=== PATIENT | female | born 1935 | race Caucasian/White ===

== ENCOUNTER → 2016-06-02 | Outpatient (REF) | payer MEDICARE ==
[~2016-06-02] MED LIST: /BACIOPOI TOP; ASPI1TAB PO; ASPI81TA31 OR; ATEN25TA OR; BACTROBAN TOP; BETAMETHASONE TOP; CALCIUM/VITAMIN D PO; CALCTAB22 OR; CLIN150C OR; DO NOT TAKE; FISH5CAP PO; FLAG500T OR; LISI20TA5 OR; MAGN500T2 OR; METO50TA4 OR; NORV5TAB PO; OMEP20TA7 OR; PROBCAP4 PO; SIMV20TA2 OR; TRAM50TA2 OR; TYLE650T25 PO; VANC12CA OR; VICO5TAB OR; VITA-113 PO; VITA500T OR; ZOFR20TA PO; ZOFRAN PO; [UNRECOGNIZED DRUG - REMARK] OR; eye drops OS
== END ==
LOC: M LAB REF 16:22
PROVIDERS: ATTEND Internal Medicine
DX: R50.9 Fever, unspecified (principal); B34.9 Viral infection, unspecified

== ENCOUNTER → 2016-06-09 | Outpatient (REF) | payer MEDICARE | LOC: M LAB REF 16:29 | PROVIDERS: ATTEND Internal Medicine | DX: R19.7 Diarrhea, unspecified (principal); R10.9 Unspecified abdominal pain ==

== ENCOUNTER → 2016-06-10 | Outpatient (REF) | payer MEDICARE | LOC: M LAB REF 11:54 | PROVIDERS: ATTEND Internal Medicine | DX: R19.7 Diarrhea, unspecified (principal); R10.9 Unspecified abdominal pain ==

== ENCOUNTER 2016-07-20 21:38 | Inpatient (IN) | payer MEDICARE ==
[~2016-07-20] VITALS: Ht 165.1 cm; Wt 68.2 kg
[2016-07-20] MEDS ORDERED: BENZ200C44 PO (22:13)
[2016-07-20] MEDS ORDERED: ZETI10TA2 PO (22:13)
[2016-07-20] MEDS ORDERED: PAXI20TA3 PO (22:13)
[2016-07-21] MEDS ORDERED: ONDANSETRON 4MG/2ML VIAL (J2405) IV ONE
[2016-07-21] MEDS: MORPHINE 4 MG/ML 1ML SYRINGE IV PRN ×2 (00:02→00:26)
[2016-07-21 00:05] LABS: BASO % 0.2 % (0.0-1.0); EOS % 0.3 % (0.0-3.0); LARGE UNSTAINED CELL # 0.1 K/mm3 (0.0-0.4); LARGE UNSTAINED CELL % 0.6 % (0.0-4.0); LYMPH # 1.2 K/mm3 (1.5-4.5); LYMPH % 9.6 % (24.0-44.0); MEAN CORPUSCULAR HEMOGLOBIN 30.6 pg (27.0-33.0); MEAN CORPUSCULAR HGB CONC 33.6 g/dl (32.0-36.5); MEAN CORPUSCULAR VOLUME 91.3 fl (80.0-96.0); MONO # 0.5 K/mm3 (0.0-0.8); MONO % 4.4 % (0.0-5.0); NEUTROPHILS # 10.2 K/mm3 (1.8-7.7); PLATELET COUNT, AUTOMATED 335 k/mm3 (150-450); RED CELL DISTRIBUTION WIDTH 12.5 % (11.5-14.5)
[2016-07-21 01:16] LABS: ALBUMIN 3.6 GM/DL (3.2-5.2); ALBUMIN/GLOBULIN RATIO 1.24 (1.00-1.93); ALKALINE PHOSPHATASE 65 U/L (45-117); ALT/SGPT 19 U/L (12-78); ANION GAP 8 MEQ/L (8-16); AST/SGOT 16 U/L (15-37); BILIRUBIN,DIRECT < 0.1 MG/DL (0.0-0.2); BILIRUBIN,TOTAL 0.4 MG/DL (0.2-1.0); BLOOD UREA NITROGEN 22 MG/DL (7-18); CARBON DIOXIDE LEVEL 25 MEQ/L (21-32); CHLORIDE LEVEL 104 MEQ/L (98-107); CREATININE FOR GFR 0.96 MG/DL (0.55-1.02); GLOMERULAR FILTRATION RATE 59.7 (>39); GLUCOSE, FASTING 162 MG/DL (83-110); POTASSIUM SERUM 3.2 MEQ/L (3.5-5.1); SODIUM LEVEL 137 MEQ/L (136-145); TOTAL PROTEIN 6.5 GM/DL (6.4-8.2)
[2016-07-21] MEDS ORDERED: ISOVUE-370 76% 100ML VIAL (Q9967) As Ordered ONE (01:48)
--- NOTE | 2016-07-21 03:30 | REPUSA ---
CLINICAL HISTORY: Abdominal pain. TECHNIQUE: Multiple axial, sagittal and coronal CT images were obtained through the abdomen and pelvi s after administration of intravenous contrast material. COMMENTS: Diffuse thickening of the sigmoid, transverse and descending colon. The liver is mildly enlarged with decreased attenuation without mass or defect. There is no intra or extrahepatic biliary ductal dilatation. The spleen is normal. The gallbladder is within normal limits . The pancreas is of normal contour and attenuation characteristics. There is no evidence of adrenal mass. 2.5 cm left renal cyst. Sigmoid diverticulosis. Both kidneys demonstrate prompt and equal nephrograms. The kidneys are normal in size, shape and conf iguration. There is no evidence of renal or ureteral mass. No renal or ureteral calculi are identifie d. There is no hydroureter or hydronephrosis. No evidence for appendicitis. No evidence for small or large bowel obstruction. There is no evidence of abdominal ascites or lymphadenopathy. There is no evidence of intrinsic or extrinsic bladder mass. There is no pelvic ascites or lymphadeno denise. Images of the lung bases show no evidence of pleural or parenchymal mass. There are no pleural effusi ons. The bony structures are free of lytic or blastic lesions. Multilevel degenerative changes are seen in volving the thoracolumbar spine. Scattered calcifications are seen involving the aorta and major bran ches compatible with atherosclerosis. Changes of mesenteric panniculitis. IMPRESSION: Diffuse colitis. No perforation or abscess formation. No pneumatosis coli. Prior hysterectomy. Cystitis. No evidence of acute abdominal or pelvic pathology. Thank you for your kind referral of this patient.
[2016-07-21] MEDS ORDERED: IMIPENEM/CILASTATIN 500 MG in D5W MINI-BAG PLUS 100 ML IV ONE (04:00)
[2016-07-21] MEDS ORDERED: metroNIDAZOLE 500 MG in APPROPRIATE DILUENT 1 EA IV ONE (04:00)
[2016-07-21] MEDS ORDERED: MAGN400T5 PO (04:02)
[2016-07-21] MEDS ORDERED: CO Q100C10 PO (04:02)
[2016-07-21] MEDS ORDERED: CALCTAB75 PO (04:02)
[2016-07-21] MEDS ORDERED: LISI10TA4 PO (04:02)
[2016-07-21] MEDS ORDERED: BACITAB3 PO (04:02)
[2016-07-21] MEDS ORDERED: OMEP40CA2 PO (04:02)
[2016-07-21] MEDS ORDERED: MIRA33504 PO (04:02)
[2016-07-21] MEDS ORDERED: ONDANSETRON 4MG/2ML VIAL (J2405) IV PRN (05:45)
[2016-07-21] MEDS ORDERED: MORPHINE 2 MG/ML 1ML SYRINGE IV PRN (05:45)
[2016-07-21] MEDS ORDERED: KCL 40MEQ in NS 1000ML 1,000 ML IV SCH (05:45)
--- NOTE | 2016-07-21 06:16 | ECGEPIP ---
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
[2016-07-21 07:00] VITALS: BP 130/60
[2016-07-21 07:05] LABS: INR 1.06
--- NOTE | 2016-07-21 07:23 | HPEPDOC ---
General Date of Admission July 21, 2016 at 05:04 Primary Care Physician: LURDES GARNER DO Attending Physician: SAIMA PERLA Chief Complaint The patient is a 80-year-old female admitted with a reason for visit of Colitis. Source: Patient, RN notes reviewed, Old records Exam Limitations: No limitations Timing/Duration: This evening Associated Symptoms: Diaphoresis, Chills, Loss of appetite, Nausea, Vomiting, Weakness History of Present Illness Ms. Caldera is a 80-year-old female who presents to [facility] emergency Department with crampy abdominal pain and bloody diarrhea. 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 Patient reports that crampy abdominal pain started after supper last evening. Her crampy abdominal pain was so severe to the point that she had blurry vision and weakness which caused her to almost lose consciousness. Subsequent to the crampy abdominal pain patient developed diarrhea and vomited. Patient reports since admission to the emergency department she's had at least 10 episodes of diarrhea with the 3-4 most recent episodes being bright red blood per rectum. Reports 4-5 nonbloody episodes of emesis. Reports a similar episode approximately 6 months ago, but reports a more mild attack. During episodes patient has heart palpitations and develops nausea associated with the pain. Reports a "warmness "along her lower abdomen. Denies fever. Admits to burning with diarrheal episodes as well as burning with urination. Denies hematuria, urinary frequency or urgency. Reports associated back pain. Reports having the flu approximately 4 weeks ago for which she was taking Tamiflu. Admits to a weight loss associated with this flu approximately 12 pounds and reports no desire to eat. Admits to joint pain and muscle pain. Besides positive review of systems listed above all other review of systems are negative. Hospitalist service was consulted and patient was admitted for further medical management. Home Medications Scheduled (Co Q 10) 100 Mg Cap, 100 MG PO DAILY, (Reported) Amlodipine Besylate (Norvasc) 5 Mg Tab, 5 MG PO DAILY, (Reported) Aspirin (Aspirin 81) 81 Mg Tab, 81 MG PO DAILY, (Reported) Calcium/Vitamin D (Calcium 500 +D 500-400 mg-Unit) 1 Tab Tab, 1 TAB PO DAILY, ( Reported) Ezetimibe (Zetia) 10 Mg Tab, 10 MG PO DAILY, (Reported) Lactobacillus Acidophilus (Bacid) 1 Tab Tab, 1 TAB PO DAILY, (Reported) Lisinopril (Lisinopril) 10 Mg Tab, 10 MG PO DAILY, (Reported) Magnesium Oxide (Magnesium Oxide 400) 400 Mg Tab, 400 MG PO DAILY, (Reported) Omeprazole (Omeprazole) 40 Mg Cap, 40 MG PO DAILY, (Reported) Polyethylene Glycol (Miralax) 1 Pow Pow, 17 GM PO DAILY, (Reported) Allergies Coded Allergies: TAPE (Verified Allergy, Intermediate, DERMATITIS, 05/05/10) Latex (Verified Allergy, Unknown, 09/13/13) Penicillins (Unverified Allergy, Unknown, RASH, 06/12/12) Quinolones (Unverified Allergy, Unknown, RASH, 06/12/12) SEAFOOD (Unverified Allergy, Unknown, RASH, 05/08/04) Statins (Verified Allergy, Unknown, 09/13/13) Sulfa Drugs (Verified Allergy, Unknown, 06/12/12) Erythromycin (Verified Adverse Reaction, Mild, DIARHEA, 06/12/12) Past Medical History Medical History 1. Hypertension 2. Gastroesophageal reflux disease 3. History of Clostridium difficile infection 4. Diverticulosis 5. Anxiety/depression 6. Dyslipidemia 7. Arthritis 8. Right bundle branch block 9. History of urinary tract infection 10. Right posterior neck mass 11. Enterocele Surgical History 1. Upper endoscopy 2. Colonoscopy 3. Cardiac catheterization 4. Fecal microbiota transplant 5. Biopsy of right posterior neck mass 6. Vaginal hysterectomy 7. Mesh suspension 8. Appendectomy 9. Left knee surgery 10. 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 Dyspnea, Lt Headedness Gastrointestinal: Reports: Nausea (with pain), Vomiting (nonbloody), Abdominal Pain (lower abdomen), Diarrhea (bright red blood per rectum), Hematochezia, Denies: Constipation Genitourinary: Reports: Dysuria, Denies: Frequency, Incontinence, Hematuria Hematologic: Reports: Bruising, Bleeding Excessively Musculoskeletal: Reports: Back Pain, Joint Pain, Muscle Pain Neurological: Reports: Weakness Physical Examination General Exam: Positive: Alert, Cooperative, No Acute Distress Eye Exam: Positive: PERRLA, Conjunctiva & lids normal, EOMI, Negative: Sclera icteric, Ptosis ENT Exam: Positive: Atraumatic, Pharynx Normal, Tongue Midline, Nares Patent, Negative: Mucous membr. moist/pink, Pharyngeal Edema Neck Exam: Positive: Supple, Other (without carotid bruit), Negative: JVD, thyromegaly, +2 carotid pulse wo bruit, Lymphadenopathy Chest Exam: Positive: Clear to auscultation, Normal air movement Heart Exam: Positive: Rate Normal, Regular Rhythm, Normal S1, Normal S2, Negative: Gallops, Murmurs, Rubs Telemetry: Positive: No significant arrhythmia Abdomen Exam: Positive: Normal bowel sounds, Soft, Tenderness (in the lower abdominal quadrants), Negative: Hepatospenomegaly, Mass, Hernia Extremity Exam: Positive: Normal pulses, Negative: Clubbing, Cyanosis, Edema, Tenderness Skin Exam: Positive: Nl turgor and temperature, Negative: Rash, Lesion Neuro Exam: Positive: Normal Speech, Strength at 5/5 X4 ext, Cranial Nerves 3- [address] NL Other physical findings CT of the abdomen and pelvis with IV contrast only IMPRESSION: Diffuse colitis. No perforation or abscess formation. No pneumatosis coli. Prior hysterectomy. Cystitis. No evidence of acute abdominal or pelvic pathology. Vital Signs Vital Signs Date Time Temp Pulse Resp B/P (MAP) Pulse Ox O2 Delivery O2 Flow Rate FiO2 07/21/16 05:32 97.9 74 20 107/53 (71) 97 Room Air Height (in): 65 Weight (kg): 66.67 BMI (kg): 24.5 Laboratory Data Labs 24H Laboratory Tests 2 07/20/16 23:49: White Blood Count 12.0H, Red Blood Count 4.39, Hemoglobin 13.4, Hematocrit 40.1 , Mean Corpuscular Volume 91.3, Mean Corpuscular Hemoglobin 30.6, Mean Corpuscular Hemoglobin Concent 33.6, Red Cell Distribution Width 12.5, Platelet Count 335, Neutrophils (%) (Auto) 85.0H, Lymphocytes (%) (Auto) 9.6L, Monocytes (%) (Auto) 4.4, Eosinophils (%) (Auto) 0.3, Basophils (%) (Auto) 0.2, Neutrophils # (Auto) 10.2H, Lymphocytes # (Auto) 1.2L, Monocytes # (Auto) 0.5, Eosinophils # (Auto) 0.0, Basophils # (Auto) 0.0, Large Unclassified Cells % 0.6 , Large Unclassified Cells # 0.1 07/21/16 00:35: Anion Gap 8, Glomerular Filtration Rate 59.7, Calcium Level 9.0, Aspartate Amino Transf (AST/SGOT) 16, Alanine Aminotransferase (ALT/SGPT) 19, Alkaline Phosphatase 65, Total Bilirubin 0.4, Direct Bilirubin < 0.1, Total Protein 6.5, Albumin 3.6, Albumin/Globulin Ratio 1.24, Lipase 200 CBC/BMP Laboratory Tests 07/20/16 23:49 Red Blood Count 4.39, Mean Corpuscular Volume 91.3, Mean Corpuscular Hemoglobin 30.6, Mean Corpuscular Hemoglobin Concent 33.6, Red Cell Distribution Width 12.5 , Neutrophils (%) (Auto) 85.0 H, Lymphocytes (%) (Auto) 9.6 L, Monocytes (%) ( Auto) 4.4, Eosinophils (%) (Auto) 0.3, Basophils (%) (Auto) 0.2, Neutrophils # ( Auto) 10.2 H, Lymphocytes # (Auto) 1.2 L, Monocytes # (Auto) 0.5, Eosinophils # (Auto) 0.0, Basophils # (Auto) 0.0 07/21/16 00:35 Microbiology Microbiology 07/21/16 Blood Culture, Received Pending 07/21/16 Blood Culture, Received Pending 07/20/16 Gastrointestinal Tract Panel (PCR) - Final, Complete Assessment/Plan Ms. 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 Plan / VTE VTE Prophylaxis Ordered?: Yes (TEDs and sequentials with knee-high compression) Plan Plan Abdominal pain Infectious versus inflammatory. GI panel negative. Afebrile. Empiric antibiotics with Flagyl and ertapenem secondary to patient's extensive allergies. Nothing by mouth. Intravenous Protonix twice a day. Zofran IV. Coagulation studies secondary to gastrointestinal bleeding. No need for stool for occult blood as patient has ioana blood per rectum. Could consider obtaining a colonoscopy. Could consider initiating steroids for inflammatory causes after colonoscopy. Intravenous fluids at 100 mLs per hour. Blood cultures pending. No need for nasogastric tube at this time as patient has no abdominal distention. Morphine IV for pain. Hypokalemia Likely secondary to diarrhea. 40 mEq potassium in normal saline at 100 mLs per hour. Hypertension Continue with current home medication regimen. Dyslipidemia Continue with current home medication regimen. Disposition Admit: Medical surgical unit Anticipated hospitalization: 2 nights Attending: Dr. Burris IVF: Initiate (100 mLs per hour) Diet: Make NPO Activity: Continue Current Medications: Change to IV Diagnostics: Check Labs, Repeat Labs in AM, Obtain Cultures Anticipated Discharge: Home BROWN FITZPATRICK July 21, 2016 06:19
[2016-07-21 08:06] LABS: MEAN CORPUSCULAR HEMOGLOBIN 31.2 pg (27.0-33.0); MEAN CORPUSCULAR HGB CONC 34.5 g/dl (32.0-36.5); MEAN CORPUSCULAR VOLUME 90.4 fl (80.0-96.0); RED CELL DISTRIBUTION WIDTH 12.6 % (11.5-14.5); WHITE BLOOD COUNT 8.5 K/mm3 (4.0-10.0)
[2016-07-21 08:31] LABS: ANION GAP 9 MEQ/L (8-16); BLOOD UREA NITROGEN 19 MG/DL (7-18); CALCIUM LEVEL 8.2 MG/DL (8.8-10.2); CARBON DIOXIDE LEVEL 26 MEQ/L (21-32); CHLORIDE LEVEL 104 MEQ/L (98-107); CREATININE FOR GFR 0.83 MG/DL (0.55-1.02); GLOMERULAR FILTRATION RATE > 60.0 (>39); GLUCOSE, FASTING 133 MG/DL (83-110); SODIUM LEVEL 139 MEQ/L (136-145)
[2016-07-21] MEDS ORDERED: ASPIRIN 81 MG ENTERIC TAB PO SCH (09:00)
[2016-07-21] MEDS ORDERED: ERTAPENEM SODIUM 1 GM in NS MINI-BAG PLUS 50 ML IV SCH (09:00)
[2016-07-21] MEDS: PANTOPRAZOLE 40MG INJ (PROTONIX) (C9113) IV SCH ×2 (09:59→20:07)
[2016-07-21] MEDS ORDERED: metroNIDAZOLE 500 MG in APPROPRIATE DILUENT 1 EA IV SCH (10:00)
[2016-07-21] MEDS: EZETIMIBE 10 MG TAB (ZETIA) PO SCH (10:04)
[2016-07-21] MEDS: MAGNESIUM OXIDE 400 MG TAB (MAG-OX) PO SCH (10:04)
[2016-07-21] MEDS: LACTOBACILLUS ACIDOPHILUS CAP (BACID) PO SCH (10:04)
[2016-07-21] MEDS: LISINOPRIL 10 MG TAB PO SCH (10:05)
[2016-07-21] MEDS: amLODIPine 5 MG TAB PO SCH (10:06)
[2016-07-21 14:00] VITALS: BP 125/56
[2016-07-21 22:00] VITALS: BP 121/59
[2016-07-22 00:30] VITALS: BP_SYST 120; BP_SYST 122; BP_SYST 132; BP_DIAS 50; BP_DIAS 55
[2016-07-22] MEDS ORDERED: NS 250 ML IV ONE (01:00)
[2016-07-22 06:00] VITALS: BP 115/50
[2016-07-22 06:46] LABS: MEAN CORPUSCULAR HEMOGLOBIN 31.2 pg (27.0-33.0); MEAN CORPUSCULAR VOLUME 91.8 fl (80.0-96.0); RED CELL DISTRIBUTION WIDTH 12.7 % (11.5-14.5)
[2016-07-22 07:09] LABS: ANION GAP 3 MEQ/L (8-16); BLOOD UREA NITROGEN 11 MG/DL (7-18); CALCIUM LEVEL 8.4 MG/DL (8.8-10.2); CARBON DIOXIDE LEVEL 31 MEQ/L (21-32); CHLORIDE LEVEL 106 MEQ/L (98-107); CREATININE FOR GFR 0.72 MG/DL (0.55-1.02); GLOMERULAR FILTRATION RATE > 60.0 (>39); GLUCOSE, FASTING 95 MG/DL (83-110); POTASSIUM SERUM 3.7 MEQ/L (3.5-5.1); SODIUM LEVEL 140 MEQ/L (136-145)
[2016-07-22] MEDS: LACTOBACILLUS ACIDOPHILUS CAP (BACID) PO SCH (10:03)
[2016-07-22] MEDS: LISINOPRIL 10 MG TAB PO SCH (10:04)
[2016-07-22] MEDS: EZETIMIBE 10 MG TAB (ZETIA) PO SCH (10:04)
[2016-07-22] MEDS: MAGNESIUM OXIDE 400 MG TAB (MAG-OX) PO SCH (10:04)
[2016-07-22] MEDS: amLODIPine 5 MG TAB PO SCH (10:04)
[2016-07-22] MEDS: PANTOPRAZOLE 40MG INJ (PROTONIX) (C9113) IV SCH ×2 (10:05→21:29)
--- NOTE | 2016-07-22 13:56 | IPN ---
DATE OF EXAMINATION: 07/22/2016 SUBJECTIVE: The patient tells me that she has had persistent abdominal pain with bloody stools. She denies chest pain, shortness of breath, fevers, chills, nausea, or vomiting. OBJECTIVE: VITAL SIGNS: Temperature 98.6, pulse 72, respiratory rate 18, blood pressure (BP) 115/50, oxygen (O2) saturation 97% on room air. General: She is a pleasant elderly female, sitting up in a recliner. She does not appear to be in acute distress. HEENT: Cranial nerves II-XII are grossly intact. She is wearing reading glasses. She has moist mucous membranes. No elevation in central venous pressure (CVP). CARDIOVASCULAR EXAMINATION: S1, S2. Regular. RESPIRATORY EXAMINATION: Is clear. ABDOMINAL EXAMINATION: Bowel sounds are present. There is tenderness in the left lower quadrant. EXTREMITIES: No clubbing, cyanosis, or edema. LABORATORY STUDIES: WBC 4.0, hemoglobin 11.1 stable, hematocrit 32.5, platelet count 257. Chemistry panel: Sodium 140, potassium 3.7, chloride 106, bicarbonate 31, BUN 11, creatinine 0.7. MICROBIOLOGY: Is negative. A GI PCR panel is negative. IMAGING: No new imaging. ASSESSMENT AND PLAN: This is a 80-year-old female with a history of ischemic colitis presenting now with what is likely a recurrent bout of ischemic colitis. PROBLEMS: 1. Ischemic colitis. The patient has a CT scan with findings which are suggestive of a watershed infarct and fairly diffuse colitis. It does not appear to be infectious and, as such, antibiotics were discontinued early yesterday morning. The patient is on a clear-liquid diet with intravenous (IV) Zofran as needed. Her hemoglobin and hematocrit has remained fairly stable. I have contacted Dr. Lopez of gastroenterology, who has previously seen the patient and scoped her. He agrees that it is likely ischemic colitis. 2. Hypokalemia, likely related to diarrhea and colitis, has resolved. 3. Hypertension, adequately controlled at this time. Continue with norvasc and lisinopril. 4. Dyslipidemia. Continue with Zetia. 5. Hypomagnesemia. Continue with repletion. 6. Deep venous thrombosis (DVT) prophylaxis. Sequentials and thromboembolic deterrents (TEDs). No pharmacological agents in the setting of bleeding. DISPOSITION: Will continue to follow the patient closely.
[2016-07-22 14:00] VITALS: BP 132/60
[2016-07-22] MEDS ORDERED: ACETAMINOPHEN TAB 650MG DOSE (2X325MG) PO ONE (18:15)
[2016-07-22] MEDS ORDERED: GOLYTELY SOLN 4000 ML BTL PO ONE (19:30)
[2016-07-22 22:00] VITALS: BP 125/60
[2016-07-23] MEDS ORDERED: GOLYTELY SOLN 4000 ML BTL PO ONE (05:00)
[2016-07-23 06:00] VITALS: BP 119/59
[2016-07-23 06:55] LABS: MEAN CORPUSCULAR HEMOGLOBIN 30.7 pg (27.0-33.0); MEAN CORPUSCULAR VOLUME 90.2 fl (80.0-96.0); RED CELL DISTRIBUTION WIDTH 12.5 % (11.5-14.5)
[2016-07-23 07:08] LABS: ANION GAP 6 MEQ/L (8-16); BLOOD UREA NITROGEN 9 MG/DL (7-18); CALCIUM LEVEL 8.7 MG/DL (8.8-10.2); CARBON DIOXIDE LEVEL 32 MEQ/L (21-32); CHLORIDE LEVEL 104 MEQ/L (98-107); CREATININE FOR GFR 0.68 MG/DL (0.55-1.02); GLOMERULAR FILTRATION RATE > 60.0 (>39); GLUCOSE, FASTING 96 MG/DL (83-110); POTASSIUM SERUM 3.4 MEQ/L (3.5-5.1); SODIUM LEVEL 142 MEQ/L (136-145)
[2016-07-23] MEDS: PANTOPRAZOLE 40MG INJ (PROTONIX) (C9113) IV SCH ×2 (08:48→21:39)
[2016-07-23] MEDS ORDERED: PREVNAR 13 VACCINE SYRINGE (CPT CODE:90670) IM ONE (09:00)
[2016-07-23] MEDS ORDERED: LIDOCAINE 2% INJ 100 MG/5 ML SDV (FOR ANES.) As Ordered ONE (13:28)
[2016-07-23] MEDS ORDERED: PROPOFOL 200 MG/20 ML VIAL As Ordered ONE (13:28)
[2016-07-23 14:00] VITALS: BP 140/65
--- NOTE | 2016-07-23 14:03 | ROOR ---
Patient Name: Alysa Caledra Procedure Date: 07/23/2016 1:25 PM Date of : 1935 Age: 80 Room: [facility] Gender: Female Note Status: Finalized Procedure: Colonoscopy Indications: Generalized abdominal pain, Hematochezia, acute pain with bloody diarrhea 2 days ago, CT suggestive of colitis (TV to sigmoid)-r/o ischemic colitis. Providers: Lalito LOPEZ MD Referring MD: Evie Zepeda DO, 2. Inpatient 2. Inpatient Requesting Provider: Medicines: Monitored Anesthesia Care Complications: No immediate complications. Procedure: Pre-Anesthesia Assessment: - The heart rate, respiratory rate, oxygen saturations, blood pressure, adequacy of pulmonary ventilation, and response to care were monitored throughout the procedure. The Colonoscope was introduced through the anus and advanced to 8 cm into the ileum. The colonoscopy was performed without difficulty. The patient tolerated the procedure well. The quality of the bowel preparation was good. Findings: The perianal and digital rectal examinations were normal. The mucosa vascular pattern in the sigmoid colon and in the descending colon was decreased. This was biopsied with a cold forceps for histology. The exam was otherwise normal throughout the entire colon. The terminal ileum appeared normal. Multiple medium-mouthed diverticula were found in the sigmoid colon. The colon (entire examined portion) was moderately redundant. Impression: - Decreased mucosa vascular pattern and mild erythema in the sigmoid colon and in the descending colon. Biopsied. - The rest of the colon and examined portion of the ileum was normal. - Mild diverticulosis in the sigmoid colon. - Redundant colon. - (no obviously ischemic areas or colitis seen. The mild sigmoid erythema is visually nonspecific and could be related to the colon preparation or fecal impaction/constipation)--Await biopsies to r/o a colitic process) Recommendation: - Await pathology results. - Advance diet as tolerated. - Return to my office at the next available appointment. - Return to my office in 1 month. - or sooner prn. Lalito Lopez MD Lalito LOPEZ MD 07/23/2016 2:03:43 PM This report has been signed electronically. Number of Addenda: 0 Note Initiated On: 07/23/2016 1:25 PM Estimated Blood Loss: Estimated blood loss: none.
--- NOTE | 2016-07-23 14:53 | IPN ---
DATE: 07/23/2016 SUBJECTIVE: The patient tells me that she is feeling well at the present time. She denies any abdominal pain. She denies any further vomiting, chest pain, or shortness of breath. OBJECTIVE: VITAL SIGNS: Temperature 97, pulse 56, respiratory rate 18, blood pressure 109/55, oxygen saturation 98% on room air. General: She is a pleasant female, laying flat in bed. She does not appear to be in any acute distress. HEENT: She has moist mucous membranes. No elevation in central venous pressure (CVP). CARDIOVASCULAR EXAMINATION: S1, S2, regular. RESPIRATORY EXAMINATION: Clear. ABDOMINAL EXAMINATION: Diffuse tenderness to palpation but soft and bowel sounds are present. EXTREMITIES: No clubbing, cyanosis, or edema. LABORATORY STUDIES: WBC 4.0, hemoglobin 11.7, platelet count 259. Chemistry panel: Sodium 142, potassium 3.4, chloride 104, bicarbonate 32, BUN 9, creatinine 0.6. No new microbiology. Colonoscopy report: The patient's colonoscopy revealed decreased mucosa, vascular pattern and mild erythema in the sigmoid colon and ascending colon which were biopsied. Mild diverticulosis in the sigmoid colon, redundant colon. No obviously ischemic areas or colitis seen. ASSESSMENT AND PLAN: This is a 80-year-old female with possible ischemic colitis. PROBLEMS: 1. Possible ischemic colitis. Dr. Lopez's help is greatly appreciated. Colonoscopy does not reveal any obvious ischemia. He suggested advancing diet as tolerated which we will. He has also ordered a CT angiogram to evaluate the blood flow which I agree with. The patient appears to be doing quite well. We will continue with pain control. 2. Hypokalemia, related to diarrhea and colitis, resolved. 3. Hypertension. Controlled at this time. Continue with norvasc and lisinopril. 4. Dyslipidemia. Continue with Zetia. 5. Hypomagnesemia. Continue with repletion as needed. 6. Deep venous thrombosis (DVT) prophylaxis. Sequentials and thromboembolic deterrents (TEDs). DISPOSITION: We will continue to follow the patient closely.
[2016-07-23] MEDS ORDERED: ISOVUE-370 76% 100ML VIAL (Q9967) As Ordered ONE (15:56)
--- NOTE | 2016-07-23 17:30 | REP ---
CT ANGIO of the abdomen and visceral arteries with IV contrast: History: Mesenteric vessels. Left lower quadrant pain. Comparison CT study is from July 21, 2016. CT contrast dose: 100 mL of Isovue [address] technique: Helical scanning is acquired. 3 mm axial images are reformatted. Coronal and sagittal multiplanar re-formation images are generated and reviewed. Coronal MIP images are generated and reviewed. Oblique curved array multiplanar re-formation images are generated and reviewed as well. 3-D color surface rendered images are generated. CT findings: Digital straightening press operator radiograph demonstrates an ileus pattern in the bowel gas with gaseous distension of the colon. No haustral fold or mural thickening is seen. The enterocolitis pattern with mural thickening seen on CT study from July 21, 2016 has largely resolved. The suprarenal and infrarenal abdominal aorta are widely patent. Celiac axis is patent. It shows a 50% stenosis at a 90 degree genu beyond which it is mildly dilated. No ioana aneurysm is seen. Splenic artery, proper hepatic artery and gastroduodenal branches are unremarkable. The superior mesenteric artery origin is widely patent. The inferior mesenteric artery is widely patent. There is some calcific plaquing at the origin of the right renal artery. 50% narrowing of the origin of the right renal artery suspected. Left renal artery origin is unremarkable. The common iliac arteries are widely patent. There is vascular calcification in the aorta and iliac artery branches as well as in the right renal artery. 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 No ioana aneurysm. SMA and VITALIY widely patent. 50% narrowing at the origin of the right renal artery. Signed by Ori Mays MD 07/24/2016 09:10 A
[2016-07-23] MEDS: LACTOBACILLUS ACIDOPHILUS CAP (BACID) PO SCH (18:32)
[2016-07-23] MEDS: EZETIMIBE 10 MG TAB (ZETIA) PO SCH (18:33)
[2016-07-23] MEDS: LISINOPRIL 10 MG TAB PO SCH (18:33)
[2016-07-23] MEDS: amLODIPine 5 MG TAB PO SCH (18:33)
[2016-07-23] MEDS: MAGNESIUM OXIDE 400 MG TAB (MAG-OX) PO SCH (18:33)
[2016-07-23 22:00] VITALS: BP 135/65
[2016-07-24 06:00] VITALS: BP 128/66
[2016-07-24 06:48] LABS: MEAN CORPUSCULAR HEMOGLOBIN 30.9 pg (27.0-33.0); MEAN CORPUSCULAR HGB CONC 33.8 g/dl (32.0-36.5); MEAN CORPUSCULAR VOLUME 91.5 fl (80.0-96.0); RED CELL DISTRIBUTION WIDTH 12.3 % (11.5-14.5); WHITE BLOOD COUNT 3.5 K/mm3 (4.0-10.0)
[2016-07-24 07:02] LABS: ANION GAP 4 MEQ/L (8-16); BLOOD UREA NITROGEN 6 MG/DL (7-18); CALCIUM LEVEL 8.6 MG/DL (8.8-10.2); CARBON DIOXIDE LEVEL 32 MEQ/L (21-32); CHLORIDE LEVEL 106 MEQ/L (98-107); GLOMERULAR FILTRATION RATE > 60.0 (>39); GLUCOSE, FASTING 98 MG/DL (83-110); POTASSIUM SERUM 3.6 MEQ/L (3.5-5.1); SODIUM LEVEL 142 MEQ/L (136-145)
[2016-07-24] MEDS: MAGNESIUM OXIDE 400 MG TAB (MAG-OX) PO SCH (08:45)
[2016-07-24] MEDS: PANTOPRAZOLE 40MG INJ (PROTONIX) (C9113) IV SCH ×2 (08:45→20:21)
[2016-07-24] MEDS: EZETIMIBE 10 MG TAB (ZETIA) PO SCH (08:45)
[2016-07-24] MEDS: LACTOBACILLUS ACIDOPHILUS CAP (BACID) PO SCH (08:45)
[2016-07-24] MEDS: LISINOPRIL 10 MG TAB PO SCH (08:46)
[2016-07-24] MEDS: amLODIPine 5 MG TAB PO SCH (08:46)
--- NOTE | 2016-07-24 13:43 | IPN ---
DATE: 07/24/2016 SUBJECTIVE: Today the patient tells me that she is still having abdominal pain. She had diarrhea after eating, but no blood in the stool. She denies chest pain, shortness of breath, fevers, chills, nausea or vomiting. OBJECTIVE: VITAL SIGNS: Temperature 97.6, pulse 70, respiratory rate 10, blood pressure 128/66, oxygen saturation 98% on room air. General: She is an elderly pleasant female, laying flat in bed on her back. She is in no distress. HEENT: She is mildly pale. She has moist mucous membranes. No elevation in central venous pressure (CVP). CARDIOVASCULAR EXAMINATION: S1 and S2 regular. RESPIRATORY EXAMINATION: Clear. ABDOMINAL EXAMINATION: Bowel sounds are present. The abdomen is soft. There is diffuse tenderness to palpation. LABORATORY STUDIES: WBC 3.5, hemoglobin 11.5, platelet count 264. Chemistry panel: Sodium 142, potassium 3.6, chloride 106, bicarbonate 32, BUN 6, creatinine 0.6. Microbiology: Urine culture is negative. Blood cultures are negative. GI PCR panel is negative. IMAGING: The patient did have a CT angiography of the abdomen, which revealed 50% narrowing at a right angle turn in the course of the proximal celiac axis with increase in caliber beyond this point and no ioana aneurysm. SMA and VITALIY widely patent. 50% narrowing at the original of the right renal artery. ASSESSMENT AND PLAN: This is a 80-year-old female with possible ischemic colitis. PROBLEMS: 1. Possible ischemic colitis. Dr. Lopez's help is greatly appreciated. Colonoscopy did not reveal any obvious ischemia or colitis. Her diet has been advanced. She appears to be tolerating it fairly well other than some mild diarrhea. CT angiogram reveals an area of 50% stenosis. I have reached out to Dr. Kuo of interventional radiology to see if she is candidate for any interventions at the request of Dr. Lopez who has also reviewed these imaging studies. We will see if there are any interventions we have to offer this patient. 2. Hypokalemia, related to diarrhea and colitis. Essentially resolved. 3. Hypertension. Continue with Norvasc and lisinopril. 4. Dyslipidemia. Continue with Zetia. 5. Deep venous thrombosis (DVT) prophylaxis. Sequentials and thromboembolic deterrent stockings (TEDS). DISPOSITION: Will continue to follow this patient closely.
[2016-07-24 14:00] VITALS: BP 120/73
[2016-07-24 22:00] VITALS: BP 131/63
[2016-07-25 06:00] VITALS: BP 117/55
[2016-07-25 06:28] LABS: MEAN CORPUSCULAR HEMOGLOBIN 31.4 pg (27.0-33.0); MEAN CORPUSCULAR HGB CONC 34.9 g/dl (32.0-36.5); MEAN CORPUSCULAR VOLUME 89.9 fl (80.0-96.0); RED CELL DISTRIBUTION WIDTH 12.5 % (11.5-14.5)
[2016-07-25 06:53] LABS: ANION GAP 7 MEQ/L (8-16); BLOOD UREA NITROGEN 7 MG/DL (7-18); CALCIUM LEVEL 8.2 MG/DL (8.8-10.2); CARBON DIOXIDE LEVEL 28 MEQ/L (21-32); CHLORIDE LEVEL 107 MEQ/L (98-107); CREATININE FOR GFR 0.73 MG/DL (0.55-1.02); GLOMERULAR FILTRATION RATE > 60.0 (>39); GLUCOSE, FASTING 109 MG/DL (83-110); POTASSIUM SERUM 3.5 MEQ/L (3.5-5.1); SODIUM LEVEL 142 MEQ/L (136-145)
[2016-07-25 09:20] VITALS: BP 117/55
[2016-07-25] MEDS: LISINOPRIL 10 MG TAB PO SCH (09:20)
[2016-07-25] MEDS: EZETIMIBE 10 MG TAB (ZETIA) PO SCH (09:20)
[2016-07-25] MEDS: PANTOPRAZOLE 40MG INJ (PROTONIX) (C9113) IV SCH (09:20)
[2016-07-25] MEDS: LACTOBACILLUS ACIDOPHILUS CAP (BACID) PO SCH (09:20)
[2016-07-25] MEDS: MAGNESIUM OXIDE 400 MG TAB (MAG-OX) PO SCH (09:21)
[2016-07-25] MEDS: amLODIPine 5 MG TAB PO SCH (09:21)
--- NOTE | 2016-07-26 01:05 | DSES ---
DATE OF ADMISSION: 07/21/2016 DATE OF DISCHARGE: 07/25/2016 DISCHARGE DIAGNOSIS: Ischemic colitis. SECONDARY DIAGNOSES: 1. Hypokalemia. 2. Hypertension. 3. Dyslipidemia. CONSULTS: Dr. Lopez. PROCEDURES: Colonoscopy. HOSPITAL COURSE: The patient is a 80-year-old female with a history of ischemic colitis, who presented to the hospital with abdominal pain, shortly thereafter followed by hematochezia. She did have an episode like this in the past in 2013. Was scoped by Dr. Lopez at that time and there was concern for ischemic colitis. Our suspicion is that this was the same event at this time. She was initially started on antibiotics in the emergency room; however, gastrointestinal (GI) PCR panel was negative and antibiotics were discontinued. Blood culture remained negative. Urine culture was negative. A CT of the abdomen and pelvis did reveal colitis. She did have a colonoscopy with Dr. Lopez, which did not reveal any evidence of ischemic colitis. She did have a CT angiography of the abdomen, which did not show any significant or intervenable stenosis. The patient's symptoms did gradually lin. At this time, she is tolerating a regular diet with minimal abdominal pain and no hematochezia. Her hemoglobin and hematocrit remained stable throughout her stay. Pathology from her colonoscopy is currently pending. SUBJECTIVE: Today the patient reports she feels well, almost back to normal and would like to go home. OBJECTIVE: VITAL SIGNS: Temperature 98.1, pulse 54, respiratory rate 18, blood pressure 117/55, oxygen saturation 97% on room air. GENERAL: She is a pleasant, elderly female, sitting up using her laptop. She does not appear to be in any acute distress. HEENT: She is wearing reading glasses. She has moist mucous membranes. CARDIOVASCULAR EXAMINATION: S1, S2 regular. RESPIRATORY EXAMINATION: Clear. ABDOMINAL EXAMINATION: Bowel sounds are present. The abdomen is soft. It is nontender today on examination. EXTREMITIES: No clubbing, cyanosis or edema. LABORATORY STUDIES: WBC 3.0, hemoglobin 11.9, hematocrit 34, platelet count 258. Chemistry panel: Sodium 142, potassium 3.5, chloride 107, bicarbonate 28, BUN 7, creatinine 0.7. IMAGING: Was outlined above. ASSESSMENT AND PLAN: This is a 80-year-old female with ischemic colitis. 1. Ischemic colitis. Dr. Lopez's and Dr. Kuo's help have been greatly appreciated. Colonoscopy did not reveal any obvious signs of colitis. She is tolerating a diet now. CT angiography did not reveal any intervenable stenosis. Dr. Lopez has recommended the patient remain on laxative daily, as well as calcium channel antoentte and he will followup pathology with her in his office. Gastrointestinal (GI) upset appears to have resolved. She has gone several days since her previous bout. She is to followup with primary care provider (PCP) in 7 days. Her diet is as tolerated. She has been advised to keep well hydrated. 2. Hypokalemia, related to diarrhea and colitis. Resolved with repletion. 3. Hypertension. She is on Norvasc and lisinopril. 4. Dyslipidemia. She is on Zetia. 5. Constipation. The patient is continued on her home bowel regimen. 6. Deep venous thrombosis (DVT) prophylaxis, sequentials and thromboembolism deterrent stockings (TEDS). DISPOSITION: The patient is discharged home. She is to followup with her PCP within 7 days and followup with gastroenterology within 2 weeks. Her activity is as tolerated. Diet is to stay well hydrated. She is to return to the emergency room (ER) if her symptoms worsen. MEDICATIONS AT THE TIME OF DISCHARGE: - Norvasc 5 mg daily - aspirin 81 mg daily - calcium/vitamin D 500/400 one tablet daily - coenzyme Q 100 mg daily as per the patient - Zetia 10 mg daily - Bacid one tablet daily - lisinopril 10 mg daily - magnesium oxide 400 mg daily - omeprazole 40 mg daily - MiraLAX 17 grams daily Greater than 30 minutes spent organizing disposition.
== END 2016-07-25 11:45 | disposition home or self-care (01) | DRG 392 ==
LOC: EDBD 21:38 → EDSEX 21:38 → M ED 23:20 → M ED INP 07-21 05:04 → M MS5PR 07-21 06:45
PROVIDERS: ADMIT Hospitalist; ATTEND Internal Medicine
PROC: 0DBN8ZX Excision of Sigmoid Colon, Via Natural or Artificial Opening Endoscopic, Diagnostic (ICD-10-PCS; principal; 2016-07-23 13:15)
DX: K52.9 Noninfective gastroenteritis and colitis, unspecified (principal); E87.6 Hypokalemia; I10 Essential (primary) hypertension; E78.5 Hyperlipidemia, unspecified; K59.00 Constipation, unspecified; Z79.899 Other long term (current) drug therapy; Z79.82 Long term (current) use of aspirin; K57.30 Diverticulosis of large intestine without perforation or abscess without bleeding; M19.90 Unspecified osteoarthritis, unspecified site; Z88.2 Allergy status to sulfonamides; Z88.1 Allergy status to other antibiotic agents; Z88.8 Allergy status to other drugs, medicaments and biological substances; Z88.0 Allergy status to penicillin; Z91.013 Allergy to seafood; Z91.040 Latex allergy status; K21.9 Gastro-esophageal reflux disease without esophagitis; I45.10 Unspecified right bundle-branch block; E83.42 Hypomagnesemia

== ENCOUNTER → 2017-12-03 | Outpatient (REF) | payer MEDICARE ==
[2017-12-03 13:58] LABS: RHEUMATOID FACTOR QUANT < 10.0 IU/ML (<15.0)
[2017-12-06 00:06] LABS: Lyme Disease IgG/IgM Antibodie <0.91 ISR (0.00-0.90); Lyme Disease IgM Ab Quantitati <0.80 index (0.00-0.79)
[2017-12-06 00:06] LABS: CYCLIC CITRULLINATED PEPTIDE 8 units (0-19)
== END ==
LOC: M LAB REF 13:00
DX: M25.50 Pain in unspecified joint (principal)
CPT/HCPCS: 86617

== ENCOUNTER → 2018-01-17 | Outpatient (REF) | payer MEDICARE | LOC: M LAB REF 17:01 | DX: N39.0 Urinary tract infection, site not specified (principal) | CPT/HCPCS: 87186 ==

== ENCOUNTER → 2018-02-16 | Outpatient (REF) | payer MEDICARE | LOC: M LAB REF 17:08 | DX: N39.0 Urinary tract infection, site not specified (principal) | CPT/HCPCS: 87186 ==

== ENCOUNTER → 2019-02-28 | Outpatient (REF) | payer MEDICARE ==
[~2019-02-28] MED LIST changes: -ASPI1TAB PO; +ASPI81TA26 PO; +BACITAB PO; +BENZ200C70 PO; +CALCTAB75 PO; +CO Q100C10 PO; +LISI10TA4 PO; +MAGN400T5 PO; +MIRA33504 PO; +OMEP40CA97 PO; +PAXI20TA29 PO; +ZETI10TA16 PO; -ZOFR20TA PO; +ZOFR4TAB16 PO
== END ==
LOC: M LAB REF 09:21
PROVIDERS: ATTEND Physician Assistant
DX: R30.0 Dysuria (principal)

== ENCOUNTER → 2019-03-09 | Outpatient (REF) | payer MEDICARE | LOC: M LAB REF 16:39 | PROVIDERS: ATTEND Internal Medicine | DX: R30.0 Dysuria (principal); R35.0 Frequency of micturition ==

== ENCOUNTER → 2019-07-28 | Outpatient (REF) | payer MEDICARE | LOC: M LAB REF 17:19 | PROVIDERS: ATTEND Internal Medicine | DX: K58.0 Irritable bowel syndrome with diarrhea (principal) ==

== ENCOUNTER → 2019-08-08 | Outpatient (REF) | payer MEDICARE | LOC: M LAB REF 12:33 | PROVIDERS: ATTEND Internal Medicine | DX: R30.0 Dysuria (principal); R10.32 Left lower quadrant pain ==

== ENCOUNTER → 2019-08-26 | Outpatient (REF) | payer MEDICARE | LOC: M LAB REF 13:51 | PROVIDERS: ATTEND Physician Assistant | DX: N39.0 Urinary tract infection, site not specified (principal) ==

== ENCOUNTER → 2019-09-25 | Outpatient (CLI) | payer MEDICARE ==
[~2019-09-25] MED LIST changes: +BETA5OI TOP; +BUSP10TA PO; +CVS1CAP2 PO; +CVS5CHW2 PO; +DIPH25CA32 PO; +EZET10TA21; +GNP650TA8 PO; +KRIL1CAP6 PO; +MAGN400T2 PO; +MELO15TA28; +METH4PACK PO; +NEUR100C PO; +OXYC1TAB23 PO; +OYST1TAB5 PO; +PERC5TAB12 PO; +PRED10PA PO; +PRED20TA PO; +SOLI5TAB PO; +TELM1TAB35 PO
[2019-09-25 16:36] LABS: BASO % 0.5 % (0.0-1.0); EOS # 0.1 10^3/uL (0.0-0.5); HEMATOCRIT 35.5 % (36.0-47.0); HEMOGLOBIN 11.9 g/dl (12.0-15.5); LYMPH # 1.9 10^3/uL (1.5-5.0); LYMPH % 31.7 % (24.0-44.0); MEAN CORPUSCULAR HEMOGLOBIN 30.9 pg (27.0-33.0); MEAN CORPUSCULAR HGB CONC 33.5 g/dl (32.0-36.5); MEAN CORPUSCULAR VOLUME 92.2 fl (80.0-96.0); MONO # 0.5 10^3/uL (0.0-0.8); MONO % 7.4 % (0.0-5.0); NEUTROPHILS # 3.6 10^3/uL (1.5-8.5); NEUTROPHILS % 59.1 % (36.0-66.0); PLATELET COUNT, AUTOMATED 350 10^3/uL (150-450); RED BLOOD COUNT 3.85 10^6/uL (4.00-5.40); WHITE BLOOD COUNT 6.1 10^3/uL (4.0-10.0)
[2019-09-25 16:41] LABS: ALBUMIN 3.9 GM/DL (3.2-5.2); ALT/SGPT 21 U/L (12-78); BILIRUBIN,TOTAL 0.4 MG/DL (0.2-1.0); BLOOD UREA NITROGEN 11 MG/DL (7-18); CALCIUM LEVEL 9.5 MG/DL (8.8-10.2); CARBON DIOXIDE LEVEL 27 MEQ/L (21-32); CHLORIDE LEVEL 108 MEQ/L (98-107); CPK CREATINE PHOSPHOKINASE 450 U/L (26-192); CREATININE FOR GFR 0.84 MG/DL (0.55-1.30); GLOMERULAR FILTRATION RATE > 60.0 (>32); GLUCOSE, FASTING 107 MG/DL (70-100); LDH LACTATE DEHYDROGENASE 190 U/L (84-246); POTASSIUM SERUM 3.7 MEQ/L (3.5-5.1); SODIUM LEVEL 143 MEQ/L (136-145); TOTAL PROTEIN 6.7 GM/DL (6.4-8.2)
== END ==
LOC: M WUC 14:36
PROVIDERS: ATTEND Physician Assistant
DX: M26.81 Anterior soft tissue impingement (principal); Z79.899 Other long term (current) drug therapy

== ENCOUNTER 2019-09-27 15:20 | Emergency (ER) | payer MEDICARE ==
[~2019-09-27] VITALS: Ht 165.1 cm; Wt 68.7 kg
[~2019-09-27 15:20] MED LIST changes: -BETA5OI TOP; -BUSP10TA PO; -CVS1CAP2 PO; -CVS5CHW2 PO; -DIPH25CA32 PO; -EZET10TA21; -GNP650TA8 PO; -KRIL1CAP6 PO; -MAGN400T2 PO; -MELO15TA28; -METH4PACK PO; -NEUR100C PO; -OXYC1TAB23 PO; -OYST1TAB5 PO; -PERC5TAB12 PO; -PRED10PA PO; -PRED20TA PO; -SOLI5TAB PO; -TELM1TAB35 PO
[2019-09-27] MEDS ORDERED: BUSP10TA PO (15:33)
[2019-09-27] MEDS ORDERED: TELM1TAB35 PO (15:33)
[2019-09-27] MEDS ORDERED: METH4PACK PO (15:33)
[2019-09-27] MEDS ORDERED: SOLI5TAB PO (15:33)
--- NOTE | 2019-09-27 16:38 | REP ---
Clinical: Possible acute cerebrovascular accident. Comparison: 09/11/2014 . Findings: Age-related atrophy and microvascular ischemic changes are appreciated. The ventricles and sulci are symmetric. Suggs-white differentiation is maintained. There is no evidence for acute intracranial hemorrhage, mass/mass effect, pathology or infarction. No extra-axial fluid collection. Calvarium is intact. Paranasal sinuses and mastoid air cells are clear. Impression: Age related atrophy and microvascular ischemic changes. No acute intracranial hemorrhage, infarction, or mass/mass effect. Electronically Signed by Bryn Michaels MD 09/27/2019 04:30 P
--- NOTE | 2019-09-27 16:42 | REP ---
Clinical: Possible acute cerebrovascular accident with trauma. Technique: Axial noncontrast images from the skull base to the thoracic inlet with coronal and sagittal re-formations. Comparison: 09/11/2014. Findings: Chronic reversal of normal lordosis centered at C4-5 along with chronic advanced multilevel degenerative disc osteophyte complexes primarily involving C4-5 to C6-7 noted. Nonacute appearing grade 1 anterolisthesis at the C3-4 level with hypertrophic facet changes and posterior osteophytosis is also identified and represents a relative change as compared to 09/11/2014. No acute fracture / compression injury or acute subluxation. Spinal canal is grossly patent. Posterior elements and spinous processes are intact. Paravertebral soft tissues are normal. Impression: Advanced chronic multilevel degenerative spondylosis as described above. No evidence for acute fracture / compression injury. Electronically Signed by Bryn Michaels MD 09/27/2019 04:34 P
--- NOTE | 2019-09-27 17:11 | REP ---
Portable chest x-ray: Single view. History: CVA. Comparison chest x-ray: February 10, 2016. Findings: Monitoring electrodes overlie the chest. The lungs are well inflated and clear. The pleural angles are sharp. Heart size is normal. There are mild degenerative changes in the thoracic spine. Pulmonary vasculature is not increased. Impression: No active cardiopulmonary disease. Electronically Signed by Ori Mays MD 09/27/2019 05:03 P
[2019-09-27] MEDS ORDERED: LORazepam 1 MG TAB PO STA (17:12)
[2019-09-27 17:45] LABS: BASO % 0.2 % (0.0-1.0); EOS % 0.1 % (0.0-3.0); HEMATOCRIT 35.8 % (36.0-47.0); HEMOGLOBIN 12.1 g/dl (12.0-15.5); LYMPH # 2.7 10^3/uL (1.5-5.0); LYMPH % 29.8 % (24.0-44.0); MEAN CORPUSCULAR HEMOGLOBIN 30.9 pg (27.0-33.0); MEAN CORPUSCULAR HGB CONC 33.8 g/dl (32.0-36.5); MEAN CORPUSCULAR VOLUME 91.6 fl (80.0-96.0); MONO # 0.7 10^3/uL (0.0-0.8); MONO % 7.5 % (0.0-5.0); NEUTROPHILS # 5.6 10^3/uL (1.5-8.5); NEUTROPHILS % 62.1 % (36.0-66.0); PLATELET COUNT, AUTOMATED 371 10^3/uL (150-450); RED BLOOD COUNT 3.91 10^6/uL (4.00-5.40)
[2019-09-27 17:59] LABS: INR 0.94; PARTIAL THROMBOPLASTIN TIME 23.5 SECONDS (25.0-38.4); PROTHROMBIN TIME 12.3 SECONDS (11.8-14.0)
[2019-09-27 18:08] LABS: CK-MB VALUE MASS 3.6 NG/ML (<3.6); CPK CREATINE PHOSPHOKINASE 466 U/L (26-192); MB/CK RELATIVE INDEX 0.77 (< OR =4); TROPONIN I < 0.02 NG/ML (< 0.10)
--- NOTE | 2019-09-27 19:28 | REPVR ---
PROCEDURE INFORMATION: Exam: MR Head Without Contrast Exam date and time: 09/27/2019 7:18 PM Age: 83 years old Clinical indication: Numbness / parasthesia; Patient HX: Sudden onset bilateral ue weakness, tingling, loss of feeling; Additional info: Right >left arm numbness progressive x 7 d TECHNIQUE: Imaging protocol: MR of the head without contrast. COMPARISON: CT Head without contrast 09/27/2019 4:09 PM FINDINGS: Brain: There are multiple hyperintense foci scattered throughout the white matter. There are a few small old white matter and basal ganglia lacunar infarcts. There also prominent perivascular spaces. DWI demonstrates no evidence of acute infarct. Gradient echo images demonstrate no evidence of hemorrhage. There is no extra-axial collection. There is no mass. There are no abnormal flow voids. Ventricles: There is no hydrocephalus. Bones/joints: Unremarkable. Sinuses: There is mild ethmoid sinus mucosal thickening. No air-fluid levels. Mastoid air cells: Normal as visualized. No mastoid effusion. Orbits: Unremarkable. Soft tissues: Unremarkable. IMPRESSION: 1. Moderate chronic microvascular disease. 2. No acute intracranial lesion or injury. Electronically signed by: Sim Mortensen On 09/27/2019 19:27:49 PM
--- NOTE | 2019-09-27 19:42 | REPVR ---
PROCEDURE INFORMATION: Exam: MR Cervical Spine Without Contrast Exam date and time: 09/27/2019 7:18 PM Age: 83 years old Clinical indication: Numbness; Patient HX: Sudden onset bilateral ue weakness, tingling, loss of feeling; Additional info: Right >left arm numbness progressive x 7 d TECHNIQUE: Imaging protocol: Multiplanar magnetic resonance images of the cervical spine without contrast. COMPARISON: CT Spine,cervical w/o contrast 09/27/2019 4:09 PM FINDINGS: Vertebrae: There is no fracture. Stir images demonstrate no evidence of a marrow infiltrating lesion. Spinal cord: There is spinal cord compression at the C3-C4. There is hyperintense signal within the cord at the site of compression. C2-C3: No significant disc disease. No significant spinal stenosis. C3-C4: There is a 3 mm spondylolisthesis. There is a disc bulge with a more focal left paracentral disc protrusion. There is facet and ligament hypertrophy. These factors result in moderate to severe central spinal stenosis . There is moderate bilateral foraminal stenosis. The disc further encroaches on the left lateral recess and foramen. C4-C5: No significant disc bulge. No central stenosis. There is asymmetric severe right foraminal stenosis. C5-C6: Mild disc bulge. There is a small left paracentral more focal disc protrusion indenting the thecal sac and partially effacing the ventral subarachnoid space. There is mild foraminal stenosis. C6-C7: Spondylosis and disc space narrowing with a posterior bony ridge and disc bulge. No central stenosis. [id number]-[id number] bilateral foraminal stenosis. C7-T1: No significant disc disease. No significant spinal stenosis. Vertebral arteries: Expected flow voids in the vertebral arteries. Soft tissues: No paraspinous or intraspinal mass, hemorrhage or fluid collection. There is no paraspinous or intraspinal mass, hemorrhage or fluid collection. IMPRESSION: C3-C4: Spondylosis and posterior element hypertrophy with spondylolisthesis. Disc bulge with more focal left paracentral disc protrusion. These factors result in moderate to severe central spinal stenosis with spinal cord compression. There is hyperintense signal within the cord indicating edema or myelopathic changes secondary to cord compression. Electronically signed by: Sim Mortensen On 09/27/2019 19:42:19 PM
[2019-09-27] MEDS ORDERED: PRED20TA PO (20:20)
[2019-09-27] MEDS ORDERED: dexameTHASONE 20MG/5ML VIAL (J1100 PER 1MG) IV ONE (20:30)
[2019-09-27 22:21] VITALS: BP 132/60
--- NOTE | 2019-09-28 08:03 | ECGEPIP ---
[facility] - ED Test Date: 2019-09-27 Pat Name: NOEL RAO Department: Room: - Gender: Female [employer]: leydi : 1935 Requested By: Pancho Evans Order Number: [id number] Reading MD: Araceli De Measurements Intervals [place] Rate: 71 P: 23 CT: 160 QRS: -2 QRSD: 141 T: 102 QT: 420 QTc: 457 Interpretive Statements SINUS RHYTHM LEFT BUNDLE BRANCH BLOCK similar to prior EKG 07/21/16 Electronically Signed on 09-28-2019 8:03:43 EDT by Araceli De
--- NOTE | 2019-11-06 15:19 | ED PDOC ---
Post-Departure Follow-Up diandra edward and mitali faxed formal report of mri c spine fo rfu [email or web address] Pancho Evans MD Nov 06, 2019 15:19
[2019-12-04] MEDS ORDERED: EZET10TA21 (09:45)
[2019-12-04] MEDS ORDERED: OYST1TAB5 PO (09:45)
[2019-12-04] MEDS ORDERED: MAGN400T2 PO (09:45)
[2019-12-04] MEDS ORDERED: MELO15TA28 (09:45)
[2019-12-04] MEDS ORDERED: NEUR100C PO (09:56)
[2019-12-04] MEDS ORDERED: CVS1CAP2 PO (09:56)
[2019-12-04] MEDS ORDERED: CVS5CHW2 PO (09:56)
[2019-12-04] MEDS ORDERED: KRIL1CAP6 PO (09:56)
[2019-12-04] MEDS ORDERED: GNP650TA8 PO (09:56)
== END 2019-09-27 22:24 | disposition home or self-care (01) ==
LOC: M ED 15:20
DX: R20.2 Paresthesia of skin (principal); M48.00 Spinal stenosis, site unspecified; G95.19 Other vascular myelopathies; I10 Essential (primary) hypertension; E78.9 Disorder of lipoprotein metabolism, unspecified; K21.9 Gastro-esophageal reflux disease without esophagitis; M81.0 Age-related osteoporosis without current pathological fracture; Z79.899 Other long term (current) drug therapy; Z79.82 Long term (current) use of aspirin
CPT/HCPCS: 70450; 70551; 71045; 72125; 72141; 80047; 82550; 82553; 84484; 85025; 85610; 85730; 86850; 86900; 86901; 93005; 93041; 94760; 96374; 99284; J1100

== ENCOUNTER → 2019-12-06 | Outpatient (CLI) | payer MEDICARE ==
[~2019-12-06] MED LIST changes: +BETA5OI TOP; +BUSP10TA PO; +CVS1CAP2 PO; +CVS5CHW2 PO; +DIPH25CA32 PO; +EZET10TA21; +GNP650TA8 PO; +KRIL1CAP6 PO; +MAGN400T2 PO; +MELO15TA28; +METH4PACK PO; +NEUR100C PO; +OXYC1TAB23 PO; +OYST1TAB5 PO; +PERC5TAB12 PO; +PRED10PA PO; +PRED20TA PO; +SOLI5TAB PO; +TELM1TAB35 PO
== END ==
LOC: M LABSMTC 12:38
PROVIDERS: ATTEND Anesthesiology
DX: Z01.812 Encounter for preprocedural laboratory examination (principal); Z20.828 Contact with and (suspected) exposure to other viral communicable diseases
CPT/HCPCS: C9803; U0003

== ENCOUNTER → 2019-12-08 | Outpatient (REF) | payer MEDICARE ==
[2019-12-08 17:47] LABS: INR 0.98; PROTHROMBIN TIME 13.2 SECONDS (12.5-14.3)
[2019-12-08 17:48] LABS: PARTIAL THROMBOPLASTIN TIME 24.9 SECONDS (24.2-38.5)
== END ==
LOC: M LAB REF 17:19
PROVIDERS: ATTEND Internal Medicine
DX: Z01.818 Encounter for other preprocedural examination (principal); Z79.899 Other long term (current) drug therapy

== ENCOUNTER 2019-12-11 07:41 | Inpatient (IN) | payer MEDICARE ==
--- NOTE | 2019-12-08 15:53 | HPE ---
DATE OF ANTICIPATED ADMISSION: 12/11/2019 ATTENDING PHYSICIAN: Emir Steinberg MD ADMITTING DIAGNOSIS: Cervical degenerative disc disease, cervical spondylolisthesis, and cervical myelopathy. HISTORY: This is an 84-year-old female patient with progressively worsening neck pain and pain radiating into the upper extremities and occasionally to the lower extremities. Studies were consistent with cervical spondylolisthesis, cervical myelopathy, and she was consented by Dr. Steinberg for an anterior cervical decompression and fusion at C3-4. She continues to struggle with her current level of symptoms. She also sustained a recent fall and she injured her back and a full workup was done on her back as well. Medical optimization pending with Dr. Zepeda. CURRENT MEDICATIONS: Include: - buspirone 10 mg - coQ10 10 mg once per day - Prilosec 40 mg one tablet once per day - probiotic one tablet in the morning -calcium 600 mg once per day - lisinopril 10 mg once per day - magnesium 400 mg one tablet once per day - telmisartan 40 mg one tablet once per day ALLERGIES: Include: PENICILLIN, CIPRO, STATINS, LATEX, ADHESIVES, and FLORQUINOLONES. Her latex allergy is thought to be related to the adhesives and bandages. REVIEW OF SYSTEMS: Denies fever, chills, chest pains, shortness of breath, or cough. Denies difficulty breathing. Notes persistent neck pain and pain down into her upper extremities. She notes gait difficulties. She feels her balance is off. She notes a burning sensation in both upper extremities. She notes weakness in the upper extremities. She has longstanding bladder incontinence that is unchanged. She has had three episodes of bowel incontinence that has been thoroughly worked up as well and thought to be related to her myelopathy. She is the primary caregiver for her as well. She denies recent exposure to COVID-19. She denies recent upper respiratory infection (URI) or urinary tract infection (UTI) symptoms. FAMILY HISTORY: Notable for diabetes, hypertension, heart disease, cancer. SOCIAL HISTORY: She does not smoke. She does not use alcohol. She is the primary caregiver for her . Exam today reveals an alert female patient. She walks with a slightly widened gait. Spurlings is positive. Deep tendon reflexes are 2+ at the biceps, 2 at the bilateral triceps, 2 at the brachioradialis bilaterally. Deep tendon reflexes are today absent at the knees, absent at the ankles. Clonus is negative on the right side. There is two beats of clonus on the left side. Neck is supple without adenopathy or jugular venous distension (JVD). Lungs: Clear to auscultation without rales or wheeze. Heart: Regular rate and rhythm. Abdomen: Bowel sounds are present. The skin around the neck is intact, no signs of infection. Current vital signs: Height 5 foot 4 inches, weight 149, temperature 96.9, blood pressure 128/70, pulse 68, respirations 17, body mass index (BMI) 25.2. IMPRESSION: Cervical degenerative disc disease, cervical spondylolisthesis, cervical myelopathy at C3-4. PLAN: She has been consented by Dr. Steinberg for an anterior cervical decompression with partial corpectomy at C3-4 with the use of VG2 graft. She was counseled on the preoperative and postoperative instructions that include reviewing her medications with her primary, when to stop her medications, to avoid things such as non-steroidal anti-inflammatories (NSAIDs) 5 days prior to surgery. After COVID testing she should continue to self-quarantine. She understands to be nothing by mouth after midnight. She understands what nothing by mouth after midnight means. We went over that she needs to be on time for her surgery. All of her questions were answered. MADDIE
[2019-12-11] VITALS (7 sets, daily range): BP systolic 140–146; BP diastolic 65–69
[~2019-12-11] VITALS: Ht 162.6 cm; Wt 67.1 kg
[~2019-12-11 07:41] MED LIST changes: -BETA5OI TOP; -DIPH25CA32 PO; -OXYC1TAB23 PO; -PERC5TAB12 PO; -PRED10PA PO
[2019-12-11] MEDS ORDERED: methylPREDNISolone 125MG 2ML VIAL IV ONE (08:15)
[2019-12-11] MEDS ORDERED: LR 1,000 ML IV ONE (08:15)
[2019-12-11] MEDS ORDERED: PERCOCET 5MG/325MG TAB PO ONE (08:15)
[2019-12-11] MEDS ORDERED: VANCOMYCIN HCL 1,000 MG, VIAL MATE ADAPTER 1 EACH in D5W 250 ML IV ONE (08:15)
[2019-12-11] MEDS ORDERED: ONDANSETRON 4MG/2ML VIAL As Ordered ONE (08:33)
[2019-12-11] MEDS ORDERED: ROCURONIUM BROMIDE 50 MG/5 ML VIAL As Ordered ONE ×3 (08:33→11:53)
[2019-12-11] MEDS ORDERED: ACETAMINOPHEN 1000MG 100ML IV BTL (OFIRMEV) (J0131 PER 10MG) As Ordered ONE (08:33)
[2019-12-11] MEDS ORDERED: dexameTHASONE 4 MG/ML 1ML VIAL (J1100 PER 1MG) As Ordered ONE (08:33)
[2019-12-11] MEDS ORDERED: propofoL 200 MG/20 ML VIAL As Ordered ONE (08:33)
[2019-12-11] MEDS ORDERED: LIDOCAINE 2% 100MG/5ML SDV (FOR ANES.) As Ordered ONE (08:33)
[2019-12-11] MEDS ORDERED: REMIFENTANIL 1MG 3ML VIAL As Ordered ONE ×2 (08:33→11:56)
[2019-12-11] MEDS ORDERED: fentaNYL 250 MCG/5 ML INJECTION (J3010) As Ordered ONE (08:33)
[2019-12-11] MEDS ORDERED: MIDAZOLAM INJ 2MG/2ML VIAL (J2250 PER 1MG) As Ordered ONE (08:34)
[2019-12-11] MEDS ORDERED: LIDOCAINE W/EPINEPHRINE 1% 20ML VIAL As Ordered ONE (08:54)
[2019-12-11] MEDS ORDERED: BACITRACIN PWD 50,000 UNITS VIAL As Ordered ONE (08:55)
[2019-12-11] MEDS ORDERED: THROMBIN SOLN 20,000 UNITS KIT As Ordered ONE (09:22)
[2019-12-11] MEDS ORDERED: ePHEDrine SULFATE 25 MG/5 ML(5MG/ML) SYRINGE As Ordered ONE (10:03)
[2019-12-11] MEDS ORDERED: SUGAMMADEX SODIUM 500 MG/5 ML VIAL (BRIDION) As Ordered ONE (11:02)
[2019-12-11] MEDS ORDERED: LR 1,000 ML IV SCH ×2 (13:15→13:30)
[2019-12-11] MEDS ORDERED: fentaNYL 100 MCG/2 ML INJECTION (J3010) IV PRN (13:15)
[2019-12-11] MEDS ORDERED: ONDANSETRON 4MG/2ML VIAL IV PRN ×2 (13:15→13:30)
[2019-12-11] MEDS ORDERED: oxyCODONE 5MG TAB PO PRN (13:15)
[2019-12-11] MEDS ORDERED: MORPHINE 2 MG/ML 1ML VIAL (J2270) IV PRN (13:30)
[2019-12-11] MEDS ORDERED: ACETAMINOPHEN TAB 650MG DOSE (2X325MG) PO PRN (13:30)
[2019-12-11] MEDS ORDERED: TRANEXAMIC ACID 100 MG/ML 10ML VIAL As Ordered ONE (15:21)
[2019-12-11] MEDS ORDERED: VANCOMYCIN 500MG/10ML VIAL As Ordered ONE (15:21)
[2019-12-11] MEDS: PERCOCET 5MG/325MG TAB PO PRN (18:38)
--- NOTE | 2019-12-11 18:58 | CR.PDOC ---
General Date of Consultation: Dec 11, 2019 Consultation REASON FOR CONSULTATION/CHIEF COMPLAINT: Physical examination HISTORY OF PRESENT ILLNESS: Patient is 84 years old female with past medical history of hypertension, hyperlipidemia, coronary artery diseases presented hospital for elective an anterior cervicaldecompression and fusion at C3-4. The surgery was done today, patient tolerated surgery well. During my 3 patient denied fever, chills, nausea, vomiting, chest pain, palpitations, diarrhea or dysuria ALLERGIES: Please see below. HOME MEDICATIONS: Please see below. PAST MEDICAL HISTORY: As per HPI PAST SURGICAL HISTORY: None FAMILY HISTORY: I personally reviewed family history and found not pertinent SOCIAL HISTORY: She does not smoke. She does not use alcohol. She is the primary caregiver for her REVIEW OF SYSTEMS: 10 point review system negative except as listed above PHYSICAL EXAMINATION: VITAL SIGNS: Please see below. GENERAL APPEARANCE: NAD HEENT: PERRLA, EOMI, neck brace RESPIRATORY: CTA CARDIOVASCULAR: S1-S2 ABDOMEN: Nontender nondistended EXTREMITIES: No cyanosis, no swelling NEUROLOGICAL: Nonfocal LABORATORY DATA: Please see below. ASSESSMENT/PLAN: Patient is 84 years old female with past medical history of diabetes, hypertension, hyperlipidemia, coronary artery diseases presented hospital for elective an anterior cervicaldecompression and fusion at C3-4. The surgery was done today, patient tolerated surgery well. During my 3 patient denied fever, chills, nausea, vomiting, chest pain, palpitations, diarrhea or dysuria anterior cervicaldecompression and fusion at C3-4 Orthopedic team follows her Incentive spirometry Pain management Hypertension Blood pressures under control Continue home meds GERD Continue Protonix Vital Signs/I&O Vital Signs Date Time Temp Pulse Resp B/P (MAP) Pulse Ox O2 Delivery O2 Flow Rate FiO2 12/11/19 17:30 97.8 93 17 145/68 (93) 96 Room Air Allergies Coded Allergies: TAPE (Verified Allergy, Intermediate, DERMATITIS, 12/04/19) Penicillins (Verified Allergy, Unknown, 12/04/19) Quinolones (Verified Allergy, Unknown, 12/04/19) SEAFOOD (Unverified Allergy, Unknown, RASH, 12/04/19) Dbgbftu-Oeu-Zdh Reductase Inhibitor (Verified Allergy, Unknown, 12/04/19) Sulfa (Sulfonamide Antibiotics) (Verified Allergy, Unknown, 12/04/19) erythromycin base (Verified Allergy, Unknown, 12/04/19) latex (Verified Allergy, Unknown, 12/04/19) Home Medications Scheduled Buspirone HCl (Buspirone HCl) 10 Mg Tablet, 1 TAB PO BID, (Reported) Calcium Carbonate/Vitamin D3 (Calcium 500-Vit D3 400 Tablet) 1 Each Tablet, 1 TAB PO DAILY, (Reported) Gabapentin (Neurontin) 100 Mg Capsule, 100 MG PO BID, (Reported) Krill/Om-3/Dha/Epa/Phospho/Ast (Krill Oil 500 mg Softgel) 1 Each Capsule, 1 CAP PO DAILY, (Reported) Lactobacillus Combo No.10 (Probiotic) 1 Each Capsule, 1 CAP PO DAILY, (Reported) Magnesium Oxide (Magnesium Oxide) 400 Mg Tablet, 400 MG PO DAILY, (Reported) Melatonin (Melatonin) 5 Mg Tab.chew, 5 MG PO QHS, (Reported) Omeprazole (Omeprazole) 40 Mg Cap, 40 MG PO DAILY, (Reported) Solifenacin Succinate (Solifenacin Succinate) 5 Mg Tablet, 1 TAB PO QPM, (Reported) Telmisartan (Telmisartan) 40 Mg Tablet, 1 TAB PO DAILY, (Reported) Ubidecarenone/Vit E Acet (Co Q-10 100 mg Softgel) 100 Mg Cap, 100 MG PO DAILY, (Reported) Scheduled PRN Acetaminophen (8 Hour) 650 Mg Tablet.er, 650 MG PO TIDP PRN for PAIN, (Reported) GEE WHEELER DO Dec 11, 2019 18:58
[2019-12-11] MEDS ORDERED: GLUCOSE 4GM CHEW TABLET PO PRN (19:00)
[2019-12-11] MEDS ORDERED: GLUCAGON INJ 1MG VIAL SC PRN (19:00)
[2019-12-11] MEDS ORDERED: DEXTROSE 50% 50 ML SYRINGE IV PRN (19:00)
[2019-12-11] MEDS: GABAPENTIN 100 MG CAP PO SCH (20:23)
[2019-12-11] MEDS: VANCOMYCIN HCL 500 MG in D5W MINI-BAG PLUS 100 ML IV SCH (20:23)
[2019-12-11] MEDS ORDERED: HumaLOG INSULIN (NovoLOG) PER UNIT SC SCH (21:00)
[2019-12-12] MEDS: PERCOCET 5MG/325MG TAB PO PRN ×5 (00:12→20:57)
[2019-12-12 02:00] VITALS: BP 140/67
[2019-12-12 06:00] VITALS: BP 140/65
[2019-12-12] MEDS ORDERED: PERC5TAB12 PO (06:18)
[2019-12-12] MEDS ORDERED: HumaLOG INSULIN (NovoLOG) PER UNIT SC SCH (07:30)
[2019-12-12] MEDS ORDERED: lisinopriL 10 MG TAB PO SCH (09:00)
[2019-12-12] MEDS: HYDROCORTISONE 1% CREAM 30 GM TOP SCH ×2 (09:00→20:58)
[2019-12-12] MEDS ORDERED: FLUBLOK(EGG FREE)(QUAD)INFLUENZA VACC 0.5ML SYRINGE 18YRS & OLDER IM ONE (09:00)
[2019-12-12] MEDS: VANCOMYCIN HCL 500 MG in D5W MINI-BAG PLUS 100 ML IV SCH (09:24)
[2019-12-12] MEDS: GABAPENTIN 100 MG CAP PO SCH ×2 (09:25→20:57)
[2019-12-12] MEDS: MAGNESIUM OXIDE 400 MG TAB (MAG-OX) PO SCH (09:26)
[2019-12-12] MEDS: OMEPRAZOLE 20 MG CAP PO SCH (09:26)
[2019-12-12] MEDS: TELMISARTAN 20 MG TAB PO SCH (09:27)
[2019-12-12 10:00] VITALS: BP 133/64
[2019-12-12 14:00] VITALS: BP 136/61
[2019-12-12] MEDS ORDERED: HYDROCORTISONE 1% CREAM 30 GM TOP ONE (15:30)
[2019-12-12 22:00] VITALS: BP 135/64
[2019-12-13] MEDS: PERCOCET 5MG/325MG TAB PO PRN ×3 (04:33→20:34)
[2019-12-13 06:00] VITALS: BP 126/67
[2019-12-13] MEDS ORDERED: FLEET ENEMA PR PRN (08:30)
[2019-12-13] MEDS: TELMISARTAN 20 MG TAB PO SCH (09:03)
[2019-12-13] MEDS: GABAPENTIN 100 MG CAP PO SCH ×2 (09:03→20:34)
[2019-12-13] MEDS: MAGNESIUM OXIDE 400 MG TAB (MAG-OX) PO SCH (09:03)
[2019-12-13] MEDS: BISACODYL 10 MG SUPP PR SCH ×2 (09:04→20:36)
[2019-12-13] MEDS: OMEPRAZOLE 20 MG CAP PO SCH (09:05)
[2019-12-13] MEDS: HYDROCORTISONE 1% CREAM 30 GM TOP SCH ×2 (09:05→20:35)
[2019-12-13 14:00] VITALS: BP 126/67
[2019-12-13] MEDS: busPIRone 10 MG TAB PO SCH ×2 (14:07→20:34)
[2019-12-13 20:00] VITALS: BP 133/70
[2019-12-14 06:00] VITALS: BP 131/73
[2019-12-14] MEDS: BISACODYL 10 MG SUPP PR SCH (09:00)
[2019-12-14] MEDS: GABAPENTIN 100 MG CAP PO SCH (09:06)
[2019-12-14] MEDS: busPIRone 10 MG TAB PO SCH (09:06)
[2019-12-14] MEDS: OMEPRAZOLE 20 MG CAP PO SCH (09:06)
[2019-12-14] MEDS: MAGNESIUM OXIDE 400 MG TAB (MAG-OX) PO SCH (09:07)
[2019-12-14] MEDS: PERCOCET 5MG/325MG TAB PO PRN (09:07)
[2019-12-14] MEDS: TELMISARTAN 20 MG TAB PO SCH (09:08)
[2019-12-14] MEDS: HYDROCORTISONE 1% CREAM 30 GM TOP SCH (09:09)
[2019-12-14] MEDS ORDERED: FLUBLOK(EGG FREE)(QUAD)INFLUENZA VACC 0.5ML SYRINGE 18YRS & OLDER IM ONE (10:00)
[2019-12-14] MEDS ORDERED: diphenhydrAMINE 25MG CAP PO PRN (12:00)
[2019-12-14] MEDS ORDERED: diphenhydrAMINE 50MG/ML VIAL (J1200) IV PRN (12:00)
[2019-12-14 14:00] VITALS: BP 112/67
--- NOTE | 2019-12-18 17:59 | REP ---
CERVICAL SPINE: PORTABLE FOUR VIEW SERIES HISTORY: Level C3-4 cervical myelopathy. A series of four cross-table lateral intraoperative radiographs of the cervical spine are presented. The initial image is time stamped 1042 a.m. This image demonstrates an orotracheal tube in place. There is a metallic needle or probe overlying the anterior arch of the hyoid bone at the level of C4. The second radiograph in the lateral projection is time stamped 01/16/1955 a.m. orotracheal tube remains in place. There is an intraoperative probe in the anterior aspect of the C3-4 intervertebral disc level on this radiograph. The third radiograph is time stamped 1150 a.m. This documents a metallic pin in the C4 vertebral body and a disc spacer in place at C3-4. The final film is time stamped 1233 p.m. showing ventral discectomy and fusion plating across the C3 through C5 level. [facility]
--- NOTE | 2019-12-19 09:16 | RO ---
DATE OF OPERATION: 12/11/2019 PREOPERATIVE DIAGNOSIS: C3-C4 spondylolisthesis with myelopathy, kyphotic deformity. POSTOPERATIVE DIAGNOSIS: C3-C4 spondylolisthesis with myelopathy, kyphotic deformity. PROCEDURE PERFORMED: * C3-C4 partial corpectomy for access to and decompression of the thecal sac and spinal cord, and reduction of spondylolisthesis. * C3-C4 arthrodesis including endplate preparation and implantation of structural allograft for spine surgery. * C4-C5 additional level arthrodesis and partial corpectomy. * C3, C4, and C5 anterior cervical instrumentation for spine surgery. * Structural allograft for spine surgery at C3-C4 and C4-C5. SURGEON: Emir Steinberg MD ENGLISH INSTRUCTOR: CHRISTOS Hoang ANESTHESIA: General. ESTIMATED BLOOD LOSS: Less than 50 mL replaced with crystalloid. COMPLICATIONS: None. INDICATIONS: Spondylolisthesis at C3-C4, spinal cord signal change on MRI, kyphotic deformity. The patient is elected for operative intervention. Consent reviewed in detail including a ioana discussion of the pathology involved, the procedure proposed, alternatives including doing nothing, and risks including, but not limited to, pain, failure, infection, bleeding, blood loss, incomplete relief, need for more surgery, possible need for posterior surgery, and other issues. The patient agreed to proceed with surgery. Additionally for this procedure, C4-C5 partial corpectomy and arthrodesis at additional level was added and the election to do so was made intraoperatively because of difficulty correcting cervical kyphosis with C3-C4 partial corpectomy and arthrodesis alone. OPERATIVE COURSE: Identified in the holding area, site and side verified, brought to the operating room. Once general anesthesia was administered, she was positioned in the usual fashion for exposure of the cervical spine. A bump was placed between the shoulder blades as well as traction with 7 pounds applied. The neck was prepped. Once she was sterilely prepped and draped in the usual fashion, I did place a 22-gauge spinal needle in the subcuticular area over the proposed incision, and obtained a cross-table lateral to assess reduction as well as the level of the incision. The proposed level was adequate; however, there was still some spondylolisthesis and partial correction. Next, the incision was infiltrated with 1% lidocaine with epinephrine and was made with a 10-blade knife, developed down through skin and subcuticular tissue. Platysma fascia was opened and divided using the bipolar cautery and tenotomy scissors. Next, the sternocleidomastoid was identified. The omohyoid was identified inferiorly. Dissection continued superior to the omohyoid. Carotid sheath was identified and protected. A small vascular branch, arterial, was identified, tied off, ligated, and divided. Dissection continued. Carotid sheath was kept lateral. The longus colli was identified. Prevertebral fascia was identified and elevated in several layers. Mr. Melchor retracted these with S-retractors exposing the disc osteophyte complex at the C3-C4 level. A bayonetted spinal needle was placed at C3-C4. Cross-table lateral x-ray was taken verifying the level. Next, distractor pins were placed across C3 and C4. I distracted across C3-C4 interspace, which appeared to open and reduce considerably. An 11-blade knife was utilized to open annulus, which was removed using pituitaries. Disk material was removed with pituitaries. Endplate was removed using curettes. Oval bur was utilized to further implement partial corpectomy to allow for adequate dissection back to the thecal sac and posterior longitudinal ligament. The posterior longitudinal ligament was able to be exposed. It was elevated with Abida curettes and removed using #2 Kerrisons. This exposed the thecal sac. The thecal sac was directly visualized. Once this was accomplished, irrigation was accomplished. Rasps and the oval bur were utilized further to contour the superior endplate of C4. A 5x7 sound was utilized to verify graft size. A 5x7 structural graft was obtained, irrigated, and implanted. It was tamped into place using a mallet and tamped. Next, at this stage, an additional cross-table lateral x-ray was obtained to visualize kyphotic deformity. I felt that the kyphosis extended significantly into the C4-C5 level and was concerned that there could be residual deformity and consequently, potentially residual instability due to this kyphosis. The decision was made to extend the arthrodesis through C4-C5. A superior distraction pin was removed. The hole was plugged with wax. Distraction pin placed across C4-C5. Retractor was moved to the C4-C5 level. C4-C5 annulus was removed using an 11-blade and pituitaries. Disk material was removed using pituitaries. Endplates were curetted removing cartilaginous endplate. Oval bur was utilized to further contour the endplates. Rasps were utilized with a 5 x 7 rasp. A size 5 x 7 graft sound was placed in C4-C5, verifying the 5 x 7 graft here. Next, structural graft was then obtained, tamped into place. Next, at this stage, distraction pins were removed. Holes were plugged with wax. Next, the oval bur was then utilized to further contour the anterior vertebral column while Mr. Melchor assisted by utilizing curved retractors to protect soft tissue structures from the bur. Next, once this was accomplished, a 30-mm SKYLINE DePuy plate was obtained, placed, felt to be in good alignment. I drilled using a 12-mm drill. Because of the patient's relatively small stature, we selected 13-mm screws. We placed 13-mm screws at C5, C4, and C3. The locking device was engaged at each level. Irrigation was accomplished. Next, a final cross-table lateral x-ray was then obtained to verify an improvement in the alignment and the addition of significant lordosis. Next, at this stage, the retractors had been removed. The platysma was reapproximated with interrupted stitch, deep dermis with interrupted stitch. Dermabond was applied. Cervical collar was placed. The patient was extubated, moved to the recovery room in good condition. For further details, please refer to the medical record. COMPONENTS USED: DePuy Synthes SKYLINE plate, 13-mm self-tapping polyaxial screws, 5 x 7 VG2 structural allograft x2. MTDD
--- NOTE | 2020-01-01 07:42 | DS ---
DATE OF ADMISSION: 12/11/2019 DATE OF DISCHARGE: 12/14/2019 ATTENDING PHYSICIAN: Dr. Emir Steinberg ADMITTING DIAGNOSES: * Cervical degenerative disk disease. * Cervical spondylolisthesis. * Cervical myelinopathy. OTHER CONDITIONS: * Hypertension. * Elevated lipids. * Coronary artery disease. DISCHARGE DIAGNOSES: * Cervical degenerative disk disease. * Cervical spondylolisthesis. * Cervical myelinopathy - status post anterior cervical decompression fusion C- 3/4, C-4/5 to include partial corpectomy at C-3/4 and C-4/5. HISTORY OF PRESENT ILLNESS: This is an 84-year-old female patient with progressively worsening neck pain, pain radiating into both upper extremities to include balance difficulties. She failed to improve with conservative management. Her studies were consistent with cervical spinal stenosis, cervical degenerative disk disease and cervical myelinopathy, and after careful discussion between the patient and Dr. Steinberg, she elected for surgery for continued symptoms and she underwent an anterior cervical decompression and fusion C-3/4, C-4/5 to include a corpectomy at C-3/4 and C-4/5. HOSPITAL COURSE: The patient was admitted on day of surgery, underwent the above listed procedure. She tolerated the procedure well, though her postoperative period was complicated by her underlying medical conditions and pain control issues. Ultimately her symptoms improved and she was discharged home. On day of discharge her pain was controlled. TREATMENT PLAN: She will use pain medications for pain control and to resume her preoperative medications and diet. She understands wound monitoring, activity limitations, aware of her collar. She will use oral pain medications for pain control. FOLLOW UP: She will follow up in our office in 7-10 days for a surgical follow up. Please refer to the medical record for further details. MTDD
== END 2019-12-14 17:00 | disposition home health service (06) | DRG 473 ==
LOC: M OR 07:41 → M MS5PR 13:50
PROVIDERS: ADMIT Orthopaedic Surgery; ATTEND Orthopaedic Surgery
PROC: 0RB30ZZ Excision of Cervical Vertebral Disc, Open Approach (ICD-10-PCS; 2019-12-11)
PROC: 01N10ZZ Release Cervical Nerve, Open Approach (ICD-10-PCS; 2019-12-11)
PROC: 0RH104Z Insertion of Internal Fixation Device into Cervical Vertebral Joint, Open Approach (ICD-10-PCS; 2019-12-11)
PROC: 0RG20K0 Fusion of 2 or more Cervical Vertebral Joints with Nonautologous Tissue Substitute, Anterior Approach, Anterior Column, Open Approach (ICD-10-PCS; principal; 2019-12-11 09:45)
DX: M50.01 Cervical disc disorder with myelopathy, high cervical region (principal); Z79.899 Other long term (current) drug therapy; M43.12 Spondylolisthesis, cervical region; Z88.0 Allergy status to penicillin; Z91.040 Latex allergy status; Z88.8 Allergy status to other drugs, medicaments and biological substances; I10 Essential (primary) hypertension; E78.5 Hyperlipidemia, unspecified; I25.10 Atherosclerotic heart disease of native coronary artery without angina pectoris

== ENCOUNTER 2019-12-17 10:25 | Observation (INO) | payer MEDICARE ==
[~2019-12-17] VITALS: Ht 162.6 cm; Wt 68.0 kg
[~2019-12-17 10:25] MED LIST changes: +PERC5TAB12 PO
[2019-12-17] MEDS ORDERED: OXYC1TAB23 PO (10:34)
[2019-12-17] MEDS ORDERED: PRED20TA PO (10:34)
[2019-12-17] MEDS ORDERED: FAMOTIDINE INJ 20MG/2ML VIAL (S0028 PER 1) IVP ONE (11:15)
[2019-12-17] MEDS ORDERED: methylPREDNISolone 125MG 2ML VIAL IV ONE (11:15)
[2019-12-17] MEDS ORDERED: diphenhydrAMINE 50MG/ML VIAL (J1200) IV ONE (11:15)
[2019-12-17 13:50] LABS: BASO % 0.1 % (0.0-1.0); EOS # 0.3 10^3/uL (0.0-0.5); EOS % 2.1 % (0.0-3.0); HEMATOCRIT 36.2 % (36.0-47.0); HEMOGLOBIN 11.9 g/dl (12.0-15.5); LYMPH # 0.5 10^3/uL (1.5-5.0); LYMPH % 4.6 % (24.0-44.0); MEAN CORPUSCULAR HEMOGLOBIN 30.5 pg (27.0-33.0); MEAN CORPUSCULAR HGB CONC 32.9 g/dl (32.0-36.5); MEAN CORPUSCULAR VOLUME 92.8 fl (80.0-96.0); MONO # 0.3 10^3/uL (0.0-0.8); MONO % 2.3 % (0.0-5.0); NEUTROPHILS # 10.7 10^3/uL (1.5-8.5); NEUTROPHILS % 90.5 % (36.0-66.0); PLATELET COUNT, AUTOMATED 376 10^3/uL (150-450); WHITE BLOOD COUNT 11.9 10^3/uL (4.0-10.0)
[2019-12-17 14:16] LABS: BLOOD UREA NITROGEN 12 MG/DL (7-18); CALCIUM LEVEL 9.1 MG/DL (8.8-10.2); CARBON DIOXIDE LEVEL 27 MEQ/L (21-32); CHLORIDE LEVEL 106 MEQ/L (98-107); CREATININE FOR GFR 0.79 MG/DL (0.55-1.30); GLOMERULAR FILTRATION RATE > 60.0 (>32); GLUCOSE, FASTING 149 MG/DL (70-100); POTASSIUM SERUM 4.1 MEQ/L (3.5-5.1); SODIUM LEVEL 140 MEQ/L (136-145)
[2019-12-17] MEDS ORDERED: ACETAMINOPHEN TAB 650MG DOSE (2X325MG) PO PRN (14:30)
[2019-12-17] MEDS ORDERED: PERCOCET 5MG/325MG TAB PO PRN (15:00)
--- NOTE | 2019-12-17 15:07 | HPEPDOC ---
General Date of Admission Dec 17, 2019 at 10:26 Date of Service: Dec 17, 2019 Chief Complaint The patient is a 84-year-old female admitted with a reason for visit of Skin Rash. Source: Patient Exam Limitations: No limitations Timing/Duration: Day(s) Severity: Moderate History of Present Illness Ms. 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 She stated that after neck surgery which was done on December 10 she developed macular papular rash all over her trunk and extremities associated with severe itchiness. Patient went to urgent care 2 days ago which she was prescribed Benadryl and prednisone. However it did not alleviate his symptoms. In ER patient was found to have extensive rash, mild leukocytosis, patient afebrile. I talked to Dr. Selby, he recommended to continue course of prednisone with Benadryl. Home Medications Scheduled Buspirone HCl (Buspirone HCl) 10 Mg Tablet, 1 TAB PO BID, (Reported) Calcium Carbonate/Vitamin D3 (Calcium 500-Vit D3 400 Tablet) 1 Each Tablet, 1 TAB PO DAILY, (Reported) Gabapentin (Neurontin) 100 Mg Capsule, 100 MG PO BID, (Reported) Krill/Om-3/Dha/Epa/Phospho/Ast (Krill Oil 500 mg Softgel) 1 Each Capsule, 1 CAP PO DAILY, (Reported) Lactobacillus Combo No.10 (Probiotic) 1 Each Capsule, 1 CAP PO DAILY, (Reported) Magnesium Oxide (Magnesium Oxide) 400 Mg Tablet, 400 MG PO DAILY, (Reported) Melatonin (Melatonin) 5 Mg Tab.chew, 5 MG PO QHS, (Reported) Omeprazole (Omeprazole) 40 Mg Cap, 40 MG PO DAILY, (Reported) Solifenacin Succinate (Solifenacin Succinate) 5 Mg Tablet, 1 TAB PO QPM, (Reported) Telmisartan (Telmisartan) 40 Mg Tablet, 1 TAB PO DAILY, (Reported) Ubidecarenone/Vit E Acet (Co Q-10 100 mg Softgel) 100 Mg Cap, 100 MG PO DAILY, (Reported) Scheduled PRN Acetaminophen (8 Hour) 650 Mg Tablet.er, 650 MG PO TIDP PRN for PAIN, (Reported) Oxycodone HCl/Acetaminophen (Percocet 5-325 mg Tablet) 1 Each Tablet, 1-2 TAB PO Q4H PRN for PAIN Miscellaneous Medications Oxycodone HCl/Acetaminophen (Oxycodone-Acetaminophen 5-325) 1 Each Tablet, (Reported) Prednisone (Prednisone) 20 Mg Tablet, (Reported) Allergies Coded Allergies: TAPE (Verified Allergy, Intermediate, DERMATITIS, 12/17/19) Penicillins (Verified Allergy, Unknown, 12/17/19) Quinolones (Verified Allergy, Unknown, 12/17/19) SEAFOOD (Unverified Allergy, Unknown, RASH, 12/17/19) Tpjqmqz-Xiu-Ayu Reductase Inhibitor (Verified Allergy, Unknown, 12/17/19) Sulfa (Sulfonamide Antibiotics) (Verified Allergy, Unknown, 12/17/19) erythromycin base (Verified Allergy, Unknown, 12/17/19) latex (Verified Allergy, Unknown, 12/17/19) Past Medical History Medical History 1. Hypertension 2. Gastroesophageal reflux disease 3. History of Clostridium difficile infection 4. Diverticulosis 5. Anxiety/depression 6. Dyslipidemia 7. Arthritis 8. Right bundle branch block 9. History of urinary tract infection 10. Right posterior neck mass 11. Enterocele Surgical History Surgical History 1. Upper endoscopy 2. Colonoscopy 3. Cardiac catheterization 4. Fecal microbiota transplant 5. Biopsy of right posterior neck mass 6. Vaginal hysterectomy 7. Mesh suspension 8. Appendectomy 9. Left knee surgery 10. Cataract surgery Family History Daughters 2: Lung cancer Mother: Alcoholism Father: Heart disease Brother and sister: Diabetes mellitus Sister: Myocardial infarction Social History * Smoker: Denies Alcohol: Denies Drugs: denies A-FIB/CHADSVASC A-FIB History Current/History of A-Fib/PAF?: No Current PO Anticoag Therapy: No Review of Systems Constitutional: Reports: Chills; Denies: Fever, Malaise ENT: Denies: Head Aches Skin: Reports: Rash, Itching Pulmonary: Denies: Dyspnea, Cough Cardiovascular: Denies: Chest Pain Gastrointestinal: Denies: Nausea, Vomiting Genitourinary: Denies: Dysuria Hematologic: Denies: Bruising, Bleeding Excessively Endocrine: Denies: Polydipsia, Polyphagia Musculoskeletal: Denies: Back Pain, Shoulder Pain Neurological: Denies: Weakness, Numbness Psych: Reports: Mood Normal Physical Examination General Exam: Positive: Alert, Cooperative Eye Exam: Positive: PERRLA ENT Exam: Positive: Atraumatic Neck Exam: Positive: Supple; Negative: JVD Chest Exam: Positive: Clear to auscultation Heart Exam: Positive: Rate Normal Abdomen Exam: Positive: Normal bowel sounds Extremity Exam: Negative: Clubbing Skin Exam: Positive: Rash (Macular papular) Neuro Exam: Positive: Strength at 5/5 X4 ext, Cranial Nerves 3-12 NL Psych Exam: Positive: Mental status NL Vital Signs Vital Signs Date Time Temp Pulse Resp B/P (MAP) Pulse Ox O2 Delivery O2 Flow Rate FiO2 12/17/19 12:23 80 16 96 Room Air 12/17/19 10:44 12/17/19 10:26 97.6 Laboratory Data Labs 24H Laboratory Tests 2 12/17/19 13:38: Immature Granulocyte % (Auto) 0.4, Neutrophils (%) (Auto) 90.5H, Lymphocytes (%) (Auto) 4.6L, Monocytes (%) (Auto) 2.3, Eosinophils (%) (Auto) 2.1, Basophils (%) (Auto) 0.1, Neutrophils # (Auto) 10.7H, Lymphocytes # (Auto) 0.5L, Monocytes # (Auto) 0.3, Eosinophils # (Auto) 0.3, Basophils # (Auto) 0.0, Nucleated Red Blood Cells % (auto) 0.0, Anion Gap 7L, Glomerular Filtration Rate > 60.0, Calcium Level 9.1 CBC/BMP Laboratory Tests 12/17/19 13:38 Assessment/Plan Ms. 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 She stated that after neck surgery which was done on December 10 she developed macular papular rash all over her trunk and extremities associated with severe itchiness. Patient went to urgent care 2 days ago which she was prescribed Benadryl and prednisone. However it did not alleviate his symptoms. In ER patient was found to have extensive rash, mild leukocytosis, patient afebrile. I talked to Dr. Selby, he r ecommended to continue course of prednisone with Benadryl. Problems (1) Skin rash Status: Acute Problem Text: Most likely secondary to chlorhexidine Dr. Selby recommended to continue steroids, Benadryl, Betamethasone topically (2) Hypertension Status: Chronic Problem Text: Blood pressures under control continue home meds (3) GERD (gastroesophageal reflux disease) Status: Chronic Problem Text: Continue PPI Plan / VTE VTE Prophylaxis Ordered?: Yes GEE WHEELER DO Dec 17, 2019 15:07
[2019-12-17] MEDS ORDERED: diphenhydrAMINE 50MG/ML VIAL (J1200) IV PRN (15:15)
[2019-12-17 16:00] VITALS: BP 150/58
[2019-12-17] MEDS: BETAMETHASONE DIP 0.05% OINT 15 GM TOP SCH (18:12)
[2019-12-17] MEDS: methylPREDNISolone 125MG 2ML VIAL IV SCH (18:12)
[2019-12-17] MEDS ORDERED: MIRALAX *UNIT DOSE* 17GM PACKET PO PRN (19:00)
[2019-12-17] MEDS: GABAPENTIN 100 MG CAP PO SCH (19:57)
[2019-12-17] MEDS: HEPARIN SOD (PORCINE) 5000UNITS/ML 1ML VIAL/SYRINGE SC SCH (19:57)
[2019-12-17] MEDS: RAMELTEON 8 MG TAB (ROZEREM) PO SCH (19:57)
[2019-12-17] MEDS: busPIRone 10 MG TAB PO SCH (19:58)
[2019-12-17 22:00] VITALS: BP 121/59
[2019-12-18] MEDS: methylPREDNISolone 125MG 2ML VIAL IV SCH ×3 (01:46→18:11)
[2019-12-18 06:00] VITALS: BP 134/60
[2019-12-18] MEDS: BETAMETHASONE DIP 0.05% OINT 15 GM TOP SCH ×2 (06:06→18:12)
[2019-12-18 07:29] LABS: HEMATOCRIT 32.9 % (36.0-47.0); HEMOGLOBIN 10.8 g/dl (12.0-15.5); MEAN CORPUSCULAR HEMOGLOBIN 30.7 pg (27.0-33.0); MEAN CORPUSCULAR HGB CONC 32.8 g/dl (32.0-36.5); MEAN CORPUSCULAR VOLUME 93.5 fl (80.0-96.0); PLATELET COUNT, AUTOMATED 367 10^3/uL (150-450); RED BLOOD COUNT 3.52 10^6/uL (4.00-5.40)
[2019-12-18 07:50] LABS: BLOOD UREA NITROGEN 16 MG/DL (7-18); CALCIUM LEVEL 8.5 MG/DL (8.8-10.2); CARBON DIOXIDE LEVEL 29 MEQ/L (21-32); CHLORIDE LEVEL 103 MEQ/L (98-107); CREATININE FOR GFR 0.86 MG/DL (0.55-1.30); GLOMERULAR FILTRATION RATE > 60.0 (>32); GLUCOSE, FASTING 150 MG/DL (70-100); MAGNESIUM LEVEL 2.2 MG/DL (1.8-2.4); POTASSIUM SERUM 4.3 MEQ/L (3.5-5.1); SODIUM LEVEL 139 MEQ/L (136-145)
[2019-12-18] MEDS: OMEPRAZOLE 20 MG CAP PO SCH (08:45)
[2019-12-18] MEDS: TELMISARTAN 20 MG TAB PO SCH (08:45)
[2019-12-18] MEDS: MAGNESIUM OXIDE 400 MG TAB (MAG-OX) PO SCH (08:45)
[2019-12-18] MEDS: GABAPENTIN 100 MG CAP PO SCH ×2 (08:45→20:38)
[2019-12-18] MEDS: busPIRone 10 MG TAB PO SCH ×2 (08:46→20:38)
[2019-12-18] MEDS: HEPARIN SOD (PORCINE) 5000UNITS/ML 1ML VIAL/SYRINGE SC SCH ×2 (08:47→20:39)
[2019-12-18 09:00] VITALS: BP 137/53
[2019-12-18] MEDS ORDERED: OMEPRAZOLE 20 MG CAP PO SCH (09:00)
[2019-12-18] MEDS ORDERED: PRED10PA PO (10:28)
[2019-12-18] MEDS ORDERED: PRED20TA PO ×2 (10:28)
[2019-12-18] MEDS ORDERED: BETA5OI TOP (10:28)
[2019-12-18] MEDS ORDERED: DIPH25CA32 PO (10:30)
--- NOTE | 2019-12-18 11:49 | DS.PDOC ---
Discharge Summary General Date of Admission Dec 17, 2019 at 10:26 Date of Discharge 12/18/19 Discharge Summary PROCEDURES PERFORMED DURING STAY: [None]. ADMITTING DIAGNOSES: Skin rash Hypertension GERD DISCHARGE DIAGNOSES: Skin rash Hypertension GERD COMPLICATIONS/CHIEF COMPLAINT: Skin Rash. HISTORY OF PRESENT ILLNESS: Ms. 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 She stated that after neck surgery which was done on December 10 she developed macular papular rash all over her trunk and extremities associated with severe itchiness. Patient went to urgent care 2 days ago which she was prescribed Benadryl and prednisone. However it did not alleviate his symptoms. In ER patient was found to have extensive rash, mild leukocytosis, patient afebrile. I talked to Dr. Selby, he recommended to continue course of prednisone with Benadryl. HOSPITAL COURSE: During hospital stay following issues addressed (1) Skin rash Most likely secondary to chlorhexidine Dr. Selby recommended to continue steroids, Benadryl, Betamethasone topically (2) Hypertension Blood pressures under control continue home meds (3) GERD (gastroesophageal reflux disease) Continue PPI DISCHARGE MEDICATIONS: Please see below. ALLERGIES: Please see below. PHYSICAL EXAMINATION ON DISCHARGE: VITAL SIGNS: Please see below. Physical Examination General Exam: Positive: Alert, Cooperative Eye Exam: Positive: PERRLA ENT Exam: Positive: Atraumatic Neck Exam: Positive: Supple; Negative: JVD Chest Exam: Positive: Clear to auscultation Heart Exam: Positive: Rate Normal Abdomen Exam: Positive: Normal bowel sounds Extremity Exam: Negative: Clubbing Skin Exam: Positive: Rash (Macular papular) Neuro Exam: Positive: Strength at 5/5 X4 ext, Cranial Nerves 3-12 NL LABORATORY DATA: Please see below. PROGNOSIS: Fair ACTIVITY: [As tolerated]. DIET: Cardiac DISCHARGE PLAN: Follow-up with bandsaw operator in one week DISCHARGE CONDITION: [Stable]. TIME SPENT ON DISCHARGE: Greater than 20 minutes. Vital Signs/I&Os Vital Signs Date Time Temp Pulse Resp B/P (MAP) Pulse Ox O2 Delivery O2 Flow Rate FiO2 12/18/19 09:00 82 137/53 (81) 12/18/19 06:00 98.3 18 98 Room Air I&O- Last 24 Hours up to 6 AM 12/18/19 06:00 Intake Total 670 ml Output Total 0 ml Balance 670 ml Laboratory Data Labs 24H Laboratory Tests 2 12/17/19 13:38: Immature Granulocyte % (Auto) 0.4, Neutrophils (%) (Auto) 90.5H, Lymphocytes (%) (Auto) 4.6L, Monocytes (%) (Auto) 2.3, Eosinophils (%) (Auto) 2.1, Basophils (%) (Auto) 0.1, Neutrophils # (Auto) 10.7H, Lymphocytes # (Auto) 0.5L, Monocytes # (Auto) 0.3, Eosinophils # (Auto) 0.3, Basophils # (Auto) 0.0, Nucleated Red Blood Cells % (auto) 0.0, Anion Gap 7L, Glomerular Filtration Rate > 60.0, Calcium Level 9.1 12/18/19 07:00: Nucleated Red Blood Cells % (auto) 0.0, Anion Gap 7L, Glomerular Filtration Rate > 60.0, Calcium Level 8.5L, Magnesium Level 2.2 CBC/BMP Laboratory Tests 12/17/19 13:38 12/18/19 07:00 Discharge Medications Scheduled Betamethasone Dip (Betamethasone Dipropionate) 15 Gm Oint...g., 0 DOSE TOP Q12H Buspirone HCl (Buspirone HCl) 10 Mg Tablet, 10 MG PO BID, (Reported) Calcium Carbonate/Vitamin D3 (Calcium 500-Vit D3 400 Tablet) 1 Each Tablet, 1 TAB PO DAILY, (Reported) Gabapentin (Neurontin) 100 Mg Capsule, 200 MG PO BID, (Reported) Krill/Om-3/Dha/Epa/Phospho/Ast (Krill Oil 500 mg Softgel) 1 Each Capsule, 1 CAP PO DAILY, (Reported) Lactobacillus Combo No.10 (Probiotic) 1 Each Capsule, 1 CAP PO DAILY, (Reported) Magnesium Oxide (Magnesium Oxide) 400 Mg Tablet, 400 MG PO DAILY, (Reported) Melatonin (Melatonin) 5 Mg Tab.chew, 5 MG PO QHS, (Reported) Omeprazole (Omeprazole) 40 Mg Cap, 40 MG PO DAILY, (Reported) Prednisone (Prednisone) 20 Mg Tablet, 20 MG PO TID stop after 7 days on 12/26/19 Prednisone (Prednisone) 20 Mg Tablet, 20 MG PO BID start on 12/27/19 stop on 01/03/20 Prednisone (Prednisone) 20 Mg Tablet, 20 MG PO BID for 5 days start on 01/04/20 Prednisone (Prednisone) 10 Mg Tab.ds.pk, 1 TAB PO DAILY final 5 days of taper Solifenacin Succinate (Solifenacin Succinate) 5 Mg Tablet, 5 MG PO QPM, (Reported) Telmisartan (Telmisartan) 40 Mg Tablet, 40 MG PO DAILY, (Reported) Ubidecarenone/Vit E Acet (Co Q-10 100 mg Softgel) 100 Mg Cap, 100 MG PO DAILY, (Reported) Scheduled PRN Acetaminophen (8 Hour) 650 Mg Tablet.er, 650 MG PO TIDP PRN for PAIN, (Reported) Diphenhydramine HCl (Diphenhydramine HCl) 25 Mg Capsule, 25 MG PO Q6H PRN for ITCHING Oxycodone HCl/Acetaminophen (Oxycodone-Acetaminophen 5-325) 1 Each Tablet, 2 TAB PO Q4H PRN for PAIN, (Reported) Allergies Coded Allergies: TAPE (Verified Allergy, Intermediate, DERMATITIS, 12/17/19) Penicillins (Verified Allergy, Unknown, 12/17/19) Quinolones (Verified Allergy, Unknown, 12/17/19) SEAFOOD (Unverified Allergy, Unknown, RASH, 12/17/19) Dayhxxg-Pwi-Ybt Reductase Inhibitor (Verified Allergy, Unknown, 12/17/19) Sulfa (Sulfonamide Antibiotics) (Verified Allergy, Unknown, 12/17/19) erythromycin base (Verified Allergy, Unknown, 12/17/19) latex (Verified Allergy, Unknown, 12/17/19) GEE WHEELER DO Dec 18, 2019 11:49
[2019-12-18 13:49] VITALS: BP 134/62
--- NOTE | 2019-12-18 15:21 | IPNPDOC ---
Text Note Date of Service The patient was seen on 12/18/19. NOTE Subjective: Pt states her itchiness improved, sales and service representative recommended 1 day more inpt for IV steroid therapy Objective: GENERAL APPEARANCE: NAD HEENT: no scleral icterus, no JVD, EOMI CARDIOVASCULAR: S1S2 LUNGS: CTA ABDOMEN: soft & not tender w palpitation MUSCULOSKELETAL: no cyanosis, no swelling INTEGUMENT: no generalized pallor NEUROLOGICAL: cranial nerve function from 2-12 intact intact, follows commands, speech not dysarthric Skin: extensive maculopapular rash of extremities and trunk Ms. 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 She stated that after neck surgery which was done on December 10 she developed macular papular rash all over her trunk and extremities associated with severe itchiness. Patient went to urgent care 2 days ago which she was prescribed Benadryl and prednisone. However it did not alleviate his symptoms. In ER patient was found to have extensive rash, mild leukocytosis, patient afebrile. I talked to Dr. Selby, he recommended to continue course of prednisone with Benadryl. Problems (1) Skin rash Most likely secondary to chlorhexidine Dr. Selby recommended to continue steroids, Benadryl, Betamethasone topically recommended 1 day more inpt for IV steroid therapy (2) Hypertension Blood pressures under control continue home meds (3) GERD (gastroesophageal reflux disease) Continue PPI VS,Fishbone, I+O VS, Fishbone, I+O Laboratory Tests 12/18/19 07:00 Vital Signs Date Time Temp Pulse Resp B/P (MAP) Pulse Ox O2 Delivery O2 Flow Rate FiO2 12/18/19 13:49 97.3 76 16 134/62 (86) 97 Room Air I&O- Last 24 Hours up to 6 AM 12/18/19 06:00 Intake Total 670 ml Output Total 0 ml Balance 670 ml GEE WHEELER DO Dec 18, 2019 15:21
[2019-12-18] MEDS: RAMELTEON 8 MG TAB (ROZEREM) PO SCH (20:38)
[2019-12-18 22:00] VITALS: BP 129/57
[2019-12-19] MEDS: methylPREDNISolone 125MG 2ML VIAL IV SCH ×2 (03:27→08:32)
[2019-12-19 06:00] VITALS: BP 145/63
[2019-12-19] MEDS: BETAMETHASONE DIP 0.05% OINT 15 GM TOP SCH (06:11)
--- NOTE | 2019-12-19 06:11 | CR.PDOC ---
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 She stated that after neck surgery which was done on December 10 she developed itchy severe rash all over her trunk and extremities. Patient went to urgent care 4 days ago where she was prescribed Benadryl and prednisone. However, it did not alleviate her symptoms. In ER patient was found to have extensive rash, mild leukocytosis, patient afebrile. Patient was admitted and started on IV methylprednisolone, Benadryl, and betamethasone dipropionate ointment. When I saw patient 12-18-2019, itch had improved. ALLERGIES: Please see below. HOME MEDICATIONS: Please see below. Past Medical History Medical History 1. Hypertension 2. Gastroesophageal reflux disease 3. History of Clostridium difficile infection 4. Diverticulosis 5. Anxiety/depression 6. Dyslipidemia 7. Arthritis 8. Right bundle branch block 9. History of urinary tract infection 10. Right posterior neck mass 11. Enterocele Surgical History Surgical History 1. Upper endoscopy 2. Colonoscopy 3. Cardiac catheterization 4. Fecal microbiota transplant 5. Biopsy of right posterior neck mass 6. Vaginal hysterectomy 7. Mesh suspension 8. Appendectomy 9. Left knee surgery 10. Cataract surgery Family History Daughters 2: Lung cancer Mother: Alcoholism Father: Heart disease Brother and sister: Diabetes mellitus Sister: Myocardial infarction Social History Smoker: Denies Alcohol: Denies Drugs: denies ROS Constitutional: Reports: Chills; Denies: Fever, Malaise ENT: Denies: Head Aches Skin: Reports: Rash, Itching (improved); no pain at surgical site Pulmonary: Denies: Dyspnea, Cough Cardiovascular: Denies: Chest Pain Gastrointestinal: Denies: Nausea, Vomiting Genitourinary: Denies: Dysuria Hematologic: Denies: Bruising, Bleeding Excessively Endocrine: Denies: Polydipsia, Polyphagia Musculoskeletal: Denies: Back Pain, Shoulder Pain, Neck pain Neurological: Denies: Weakness, Numbness Psych: Reports: Mood Normal PHYSICAL EXAMINATION: VITAL SIGNS: Please see below. GENERAL APPEARANCE: WDWNWF in NAD, brace on neck, wound C/D/I anterior neck HEENT: EOMI RESPIRATORY: No labored breathing CARDIOVASCULAR: No edema ABDOMEN: Soft and supple EXTREMITIES/SKIN: Warm and well perfused extremities; Skin with pink to red patches with faint surface change present, 75% of body NEUROLOGICAL: A+Ox4 PSYCHIATRIC: Mood appropriate and congruent to the situation LABORATORY DATA: Please see below. ASSESSMENT/PLAN: 1. Allergic contact dermatitis: 2/2 chlorhexidine. Make sure chlorhexidine is added to the allergy list for patient . Patient improving. Recommend switching to PO methylprednisolone with taper over 9 days (should taper about 10-20% per day). Ensure patient tolerating PO then discharge with follow up with derm in 2-4 weeks. Can use Benadryl 25 mg PO q 8 hours if [address] driving or performing tasks, patient aware, only use for severe itch. Switch betamethasone dipropionate to triamcinolone 0.1 cream BID to areas on body with rash, dispense 1 lb jar, should keep in refrigerator so cooled cream feels better. Use lukewarm water for bathing and cool compresses at home. 2. Wound anterior neck: Keep brace in place. Small amount of Vaseline over incision site 2 x a day. Thank you for this consultation. Dermatology signing off. Trina Pride MD [phone] Vital Signs/I&O Vital Signs Date Time Temp Pulse Resp B/P (MAP) Pulse Ox O2 Delivery O2 Flow Rate FiO2 12/18/19 22:00 98.2 73 16 129/57 (81) 95 Room Air I&O- Last 24 Hours up to 6 AM 12/19/19 06:00 Intake Total 1080 ml Output Total 0 ml Balance 1080 ml Laboratory Data Labs 24H Laboratory Tests 2 12/18/19 07:00: Nucleated Red Blood Cells % (auto) 0.0, Anion Gap 7L, Glomerular Filtration Rate > 60.0, Calcium Level 8.5L, Magnesium Level 2.2 CBC/BMP Laboratory Tests 12/18/19 07:00 Allergies Coded Allergies: TAPE (Verified Allergy, Intermediate, DERMATITIS, 12/17/19) Penicillins (Verified Allergy, Unknown, 12/17/19) Quinolones (Verified Allergy, Unknown, 12/17/19) SEAFOOD (Unverified Allergy, Unknown, RASH, 12/17/19) Kxnorls-Ong-Trm Reductase Inhibitor (Verified Allergy, Unknown, 12/17/19) Sulfa (Sulfonamide Antibiotics) (Verified Allergy, Unknown, 12/17/19) erythromycin base (Verified Allergy, Unknown, 12/17/19) latex (Verified Allergy, Unknown, 12/17/19) Home Medications Scheduled Betamethasone Dip (Betamethasone Dipropionate) 15 Gm Oint...g., 0 DOSE TOP Q12H for 10 Days, #3 Buspirone HCl (Buspirone HCl) 10 Mg Tablet, 10 MG PO BID, (Reported) Calcium Carbonate/Vitamin D3 (Calcium 500-Vit D3 400 Tablet) 1 Each Tablet, 1 TAB PO DAILY, (Reported) Gabapentin (Neurontin) 100 Mg Capsule, 200 MG PO BID, (Reported) Krill/Om-3/Dha/Epa/Phospho/Ast (Krill Oil 500 mg Softgel) 1 Each Capsule, 1 CAP PO DAILY, (Reported) Lactobacillus Combo No.10 (Probiotic) 1 Each Capsule, 1 CAP PO DAILY, (Reported) Magnesium Oxide (Magnesium Oxide) 400 Mg Tablet, 400 MG PO DAILY, (Reported) Melatonin (Melatonin) 5 Mg Tab.chew, 5 MG PO QHS, (Reported) Omeprazole (Omeprazole) 40 Mg Cap, 40 MG PO DAILY, (Reported) Prednisone (Prednisone) 20 Mg Tablet, 20 MG PO TID for 7 Days, #21 stop after 7 days on 12/26/19 Prednisone (Prednisone) 20 Mg Tablet, 20 MG PO BID for 7 Days, #14 start on 12/27/19 stop on 01/03/20 Prednisone (Prednisone) 20 Mg Tablet, 20 MG PO BID for 5 Days, #10 for 5 days start on 01/04/20 Prednisone (Prednisone) 10 Mg Tab.ds.pk, 1 TAB PO DAILY for 5 Days, #1 final 5 days of taper Solifenacin Succinate (Solifenacin Succinate) 5 Mg Tablet, 5 MG PO QPM, (Reported) Telmisartan (Telmisartan) 40 Mg Tablet, 40 MG PO DAILY, (Reported) Ubidecarenone/Vit E Acet (Co Q-10 100 mg Softgel) 100 Mg Cap, 100 MG PO DAILY, (Reported) Scheduled PRN Acetaminophen (8 Hour) 650 Mg Tablet.er, 650 MG PO TIDP PRN for PAIN, (Reported) Diphenhydramine HCl (Diphenhydramine HCl) 25 Mg Capsule, 25 MG PO Q6H PRN for ITCHING for 10 Days, #40 Oxycodone HCl/Acetaminophen (Oxycodone-Acetaminophen 5-325) 1 Each Tablet, 2 TAB PO Q4H PRN for PAIN, (Reported) TRINA PRIDE MD Dec 19, 2019 06:11
[2019-12-19] MEDS: TELMISARTAN 20 MG TAB PO SCH (08:30)
[2019-12-19] MEDS: GABAPENTIN 100 MG CAP PO SCH (08:31)
[2019-12-19] MEDS: busPIRone 10 MG TAB PO SCH (08:31)
[2019-12-19] MEDS: OMEPRAZOLE 20 MG CAP PO SCH (08:31)
[2019-12-19] MEDS: MAGNESIUM OXIDE 400 MG TAB (MAG-OX) PO SCH (08:31)
[2019-12-19] MEDS: HEPARIN SOD (PORCINE) 5000UNITS/ML 1ML VIAL/SYRINGE SC SCH (08:32)
--- NOTE | 2019-12-19 09:55 | IPNPDOC ---
Text Note Date of Service The patient was seen on 12/19/19. NOTE Discharge Addendum Patient seen and examined at bedside. No acute overnight events, no new medical complaints. Continues to feel better. Patient discharged home today. No changes to discharge instructions. Please see discharge summary for full details. VS,Fishbone, I+O VS, Fishbone, I+O Vital Signs Date Time Temp Pulse Resp B/P (MAP) Pulse Ox O2 Delivery O2 Flow Rate FiO2 12/19/19 06:00 98.4 69 16 145/63 (90) 98 Room Air I&O- Last 24 Hours up to 6 AM 12/19/19 06:00 Intake Total 1260 ml Output Total 0 ml Balance 1260 ml MARIO UNGER MD Dec 19, 2019 09:55
== END 2019-12-19 12:00 | disposition home or self-care (01) ==
LOC: M ED 10:25 → M ED INP 10:26 → M MS5PR 16:00
PROVIDERS: ADMIT Internal Medicine; ATTEND Internal Medicine
DX: R21 Rash and other nonspecific skin eruption (principal); I10 Essential (primary) hypertension; K21.9 Gastro-esophageal reflux disease without esophagitis; E78.5 Hyperlipidemia, unspecified; K57.92 Diverticulitis of intestine, part unspecified, without perforation or abscess without bleeding; F41.9 Anxiety disorder, unspecified; F32.9 Major depressive disorder, single episode, unspecified; I45.10 Unspecified right bundle-branch block; D72.829 Elevated white blood cell count, unspecified; Z79.899 Other long term (current) drug therapy; Z79.52 Long term (current) use of systemic steroids; Z88.0 Allergy status to penicillin; Z88.2 Allergy status to sulfonamides; Z88.8 Allergy status to other drugs, medicaments and biological substances; Z91.013 Allergy to seafood; Z91.040 Latex allergy status
CPT/HCPCS: 36415; 80048; 83735; 85025; 85027; 94760; 96372; 96374; 96375; 96376; 99284; G0378; J1200; J1644; J2930

== ENCOUNTER → 2020-06-20 | Outpatient (REF) | payer MEDICARE ==
[~2020-06-20] MED LIST changes: +BETA5OI TOP; +DIPH25CA32 PO; +LISI10TA22 PO; -LISI10TA4 PO; +OXYC1TAB23 PO; +PRED10PA PO
== END ==
LOC: M LAB REF 16:23
PROVIDERS: ATTEND Internal Medicine
DX: N39.0 Urinary tract infection, site not specified (principal)

== ENCOUNTER → 2020-08-30 | Outpatient (REF) | payer MEDICARE ==
[~2020-08-30] MED LIST changes: -CVS5CHW2 PO; +MELA5TAB47 PO; +OMEP40CA4 PO; -OMEP40CA97 PO
== END ==
LOC: M LAB REF 16:23
PROVIDERS: ATTEND Internal Medicine
DX: M19.042 Primary osteoarthritis, left hand (principal); M19.041 Primary osteoarthritis, right hand

== ENCOUNTER 2020-09-10 18:55 | Emergency (ER) | payer MEDICARE ==
[~2020-09-10] VITALS: Ht 162.6 cm; Wt 68.2 kg
[2020-09-10 19:30] LABS: BASO % 0.6 % (0.0-1.0); EOS % 0.8 % (0.0-3.0); HEMATOCRIT 35.6 % (36.0-47.0); HEMOGLOBIN 12.3 g/dl (12.0-15.5); LYMPH # 2.9 10^3/uL (1.5-5.0); LYMPH % 55.9 % (24.0-44.0); MEAN CORPUSCULAR HEMOGLOBIN 30.8 pg (27.0-33.0); MEAN CORPUSCULAR HGB CONC 34.6 g/dl (32.0-36.5); MONO # 0.5 10^3/uL (0.0-0.8); MONO % 9.5 % (2.0-8.0); NEUTROPHILS # 1.7 10^3/uL (1.5-8.5); NEUTROPHILS % 33.2 % (36.0-66.0); PLATELET COUNT, AUTOMATED 322 10^3/uL (150-450); WHITE BLOOD COUNT 5.2 10^3/uL (4.0-10.0)
[2020-09-10] MEDS ORDERED: ASPIRIN 81 MG CHEW TABLET PO ONE (19:40)
--- NOTE | 2020-09-10 19:48 | REP ---
INDICATION: CHEST PAIN COMPARISON: 09/27/2019 TECHNIQUE: Portable AP view of the chest FINDINGS: The mediastinum and cardiac silhouette are stable and within normal limits for portable technique. The lung neal are clear without acute consolidation, effusion, or pneumothorax. Skeletal structures are intact. IMPRESSION: No acute cardiopulmonary process appreciated. <Electronically signed by Bryn Michaels > 09/10/20 1943
[2020-09-10 20:10] LABS: CALCIUM LEVEL 9.1 MG/DL (8.8-10.2); CREATININE FOR GFR 1.04 MG/DL (0.55-1.30); GLOMERULAR FILTRATION RATE 53.9 (>32)
[2020-09-11 02:00] VITALS: BP 129/79
[2020-09-11] MEDS ORDERED: TRAZ-252 PO (02:09)
[2020-09-11] MEDS ORDERED: PROP20TA72 PO (02:10)
--- NOTE | 2020-09-11 20:05 | ECGEPIP ---
[facility] - ED Test Date: 2020-09-10 Pat Name: NOEL RAO Department: Room: - Gender: Female Shirt Hemmer: LINDSEY : 1935 Requested By: LISSET Lentz Order Number: [id number] Reading MD: Araceli De Measurements Intervals [place] Rate: 93 P: 72 RI: 140 QRS: 11 QRSD: 132 T: 124 QT: 384 QTc: 477 Interpretive Statements Normal sinus rhythm Left bundle branch block increased rate 09/27/19 Electronically Signed on 09-11-2020 20:05:18 EDT by Araceli De
== END 2020-09-11 02:30 | disposition home or self-care (01) ==
LOC: M ED 18:55
DX: R07.89 Other chest pain (principal); I44.7 Left bundle-branch block, unspecified; I51.9 Heart disease, unspecified; Z95.5 Presence of coronary angioplasty implant and graft; Z79.899 Other long term (current) drug therapy; Z88.0 Allergy status to penicillin; Z88.8 Allergy status to other drugs, medicaments and biological substances; Z91.013 Allergy to seafood; Z88.2 Allergy status to sulfonamides; Z91.89 Other specified personal risk factors, not elsewhere classified; Z88.1 Allergy status to other antibiotic agents; Z91.040 Latex allergy status

== ENCOUNTER → 2021-08-01 | Outpatient (REF) | payer MEDICARE ==
[~2021-08-01] MED LIST changes: +PROP20TA72 PO; +TRAZ-252 PO
== END ==
LOC: M LAB REF 15:51
PROVIDERS: ATTEND Internal Medicine
DX: R10.30 Lower abdominal pain, unspecified (principal); R63.4 Abnormal weight loss

== ENCOUNTER → 2021-08-07 | Outpatient (CLI) | payer MEDICARE ==
[~2021-08-07] MED LIST changes: +GASTROGRAFIN SOLUTION 30ML (Q9963) As Ordered ONE; +ISOVUE-370 76% 100ML VIAL As Ordered ONE
== END ==
LOC: M RAD 16:22
PROVIDERS: ATTEND Internal Medicine
DX: R10.30 Lower abdominal pain, unspecified (principal)
CPT/HCPCS: 74178; Q9963; Q9967

== ENCOUNTER → 2021-09-29 | Outpatient (CLI) | payer MEDICARE ==
[~2021-09-29] MED LIST changes: -GASTROGRAFIN SOLUTION 30ML (Q9963) As Ordered ONE; -ISOVUE-370 76% 100ML VIAL As Ordered ONE; +LACT20EL PO; +OMEGCAP4 PO
== END ==
LOC: M LABSMTC 10:27
PROVIDERS: ATTEND Anesthesiology
DX: Z01.812 Encounter for preprocedural laboratory examination (principal); Z20.822 Contact with and (suspected) exposure to COVID-19

== ENCOUNTER 2021-10-03 10:26 | Day surgery (SDC) | payer MEDICARE ==
[~2021-10-03] VITALS: Ht 165.1 cm; Wt 58.1 kg
[~2021-10-03 10:26] MED LIST changes: +NS 1,000 ML IV ONE
[2021-10-03] MEDS ORDERED: fentaNYL 100 MCG/2 ML INJECTION As Ordered ONE (12:24)
[2021-10-03] MEDS ORDERED: LIDOCAINE 2% 100MG/5ML SDV (FOR ANES.) As Ordered ONE (12:28)
[2021-10-03] MEDS ORDERED: propofoL 200 MG/20 ML VIAL As Ordered ONE ×2 (12:28→12:43)
[2021-10-03 13:55] VITALS: BP 138/68
== END 2021-10-03 13:56 | disposition home or self-care (01) ==
LOC: M OPP 10:26
PROVIDERS: ATTEND Internal Medicine Gastroenterology
DX: K57.30 Diverticulosis of large intestine without perforation or abscess without bleeding (principal); K59.00 Constipation, unspecified; R63.4 Abnormal weight loss; I10 Essential (primary) hypertension; K57.32 Diverticulitis of large intestine without perforation or abscess without bleeding; Z86.19 Personal history of other infectious and parasitic diseases; F32.9 Major depressive disorder, single episode, unspecified; F41.9 Anxiety disorder, unspecified; M81.0 Age-related osteoporosis without current pathological fracture; Z79.02 Long term (current) use of antithrombotics/antiplatelets; Z79.1 Long term (current) use of non-steroidal anti-inflammatories (NSAID); Z79.899 Other long term (current) drug therapy; Z88.0 Allergy status to penicillin; Z88.1 Allergy status to other antibiotic agents; Z88.2 Allergy status to sulfonamides; Z88.8 Allergy status to other drugs, medicaments and biological substances; Z91.013 Allergy to seafood; Z91.040 Latex allergy status; Z91.048 Other nonmedicinal substance allergy status; Z87.898 Personal history of other specified conditions; Z86.718 Personal history of other venous thrombosis and embolism; Z86.2 Personal history of diseases of the blood and blood-forming organs and certain disorders involving the immune mechanism
CPT/HCPCS: 43235; 45378; J3010

== ENCOUNTER 2021-10-11 11:19 | Emergency (ER) | payer MEDICARE ==
[~2021-10-11] VITALS: Ht 165.1 cm; Wt 57.7 kg
[~2021-10-11 11:19] MED LIST changes: -NS 1,000 ML IV ONE
[2021-10-11] MEDS ORDERED: ROSU10TA6 PO (11:29)
[2021-10-11 12:51] LABS: BASO % 0.4 % (0.0-1.0); EOS # 0.2 10^3/uL (0.0-0.5); EOS % 2.8 % (0.0-3.0); HEMATOCRIT 34.6 % (36.0-47.0); HEMOGLOBIN 11.5 g/dl (12.0-15.5); LYMPH # 1.8 10^3/uL (1.5-5.0); LYMPH % 24.8 % (24.0-44.0); MEAN CORPUSCULAR HEMOGLOBIN 30.8 pg (27.0-33.0); MEAN CORPUSCULAR HGB CONC 33.2 g/dl (32.0-36.5); MEAN CORPUSCULAR VOLUME 92.8 fl (80.0-96.0); MONO # 0.5 10^3/uL (0.0-0.8); MONO % 6.7 % (2.0-8.0); NEUTROPHILS # 4.6 10^3/uL (1.5-8.5); PLATELET COUNT, AUTOMATED 327 10^3/uL (150-450); RED BLOOD COUNT 3.73 10^6/uL (4.00-5.40); WHITE BLOOD COUNT 7.1 10^3/uL (4.0-10.0)
[2021-10-11 13:38] LABS: ALBUMIN 3.4 GM/DL (3.2-5.2); ALT/SGPT 14 U/L (12-78); BILIRUBIN,DIRECT < 0.1 MG/DL (0.0-0.2); BILIRUBIN,TOTAL 0.4 MG/DL (0.2-1.0); LIPASE 91 U/L (73-393); TOTAL PROTEIN 6.2 GM/DL (6.4-8.2)
[2021-10-11] MEDS ORDERED: methocarbamoL 750 MG TAB PO ONE (13:40)
[2021-10-11] MEDS ORDERED: LIDOCAINE 5% (LIDODERM) PATCH TD ONE (13:40)
[2021-10-11] MEDS ORDERED: DICYCLOMINE 10 MG CAP PO ONE (13:40)
[2021-10-11] MEDS ORDERED: ISOVUE-370 76% 100ML VIAL As Ordered ONE (13:42)
[2021-10-11] MEDS ORDERED: METR-265 PO (15:32)
[2021-10-11] MEDS ORDERED: ASPE4PAD TOP (15:32)
[2021-10-11] MEDS ORDERED: DICY10CA13 PO (15:32)
[2021-10-11] MEDS ORDERED: METH-1165 PO (15:32)
[2021-10-11] MEDS ORDERED: metroNIDAZOLE (FLAGYL) 500MG TABLET PO ONE (15:35)
[2021-10-11 15:43] VITALS: BP 150/68
[2021-10-11] MEDS ORDERED: **NOTE PATIENT COMMENT** MISC XX SCH (21:00)
== END 2021-10-11 15:54 | disposition home or self-care (01) ==
LOC: M ED 11:19
DX: K57.32 Diverticulitis of large intestine without perforation or abscess without bleeding (principal); R10.9 Unspecified abdominal pain; M54.50 Low back pain, unspecified; I10 Essential (primary) hypertension; E78.5 Hyperlipidemia, unspecified; Z87.442 Personal history of urinary calculi; Z79.899 Other long term (current) drug therapy; Z88.0 Allergy status to penicillin; Z88.8 Allergy status to other drugs, medicaments and biological substances; Z88.2 Allergy status to sulfonamides; Z91.89 Other specified personal risk factors, not elsewhere classified; Z88.1 Allergy status to other antibiotic agents; Z91.040 Latex allergy status; Z91.013 Allergy to seafood
CPT/HCPCS: 74177; 80047; 80076; 81001; 83690; 85025; 99284; Q9967

== ENCOUNTER → 2021-10-16 | Outpatient (REF) | payer MEDICARE ==
[~2021-10-16] MED LIST changes: +ASPE4PAD TOP; +DICY10CA13 PO; +METH-1165 PO; +METR-265 PO; +ROSU10TA6 PO
[2021-10-16 18:21] LABS: TOTAL PROTEIN 6.2 GM/DL (6.4-8.2)
[2021-10-17 11:03] LABS: ALBUMIN 3.97 GM/DL (3.29-5.55); ALBUMIN % 64.1 % (55.8-66.1); ALPHA-1-GLOBULIN % 5.4 % (2.9-4.9); ALPHA-1-GLOBULINS 0.33 GM/DL (0.17-0.41); ALPHA-2-GLOBULINS 0.74 GM/DL (0.42-0.99); BETA-1-GLOBULINS 0.37 GM/DL (0.28-0.60); BETA-2-GLOBULINS 0.23 GM/DL (0.19-0.55); BETA-2-GLOBULINS % 3.7 % (3.2-6.5); GAMMA GLOBULIN % 8.8 % (11.1-18.8); GAMMA GLOBULINS 0.55 GM/DL (0.65-1.58)
== END ==
LOC: M LAB REF 16:08
PROVIDERS: ATTEND Internal Medicine
DX: M89.8X0 Other specified disorders of bone, multiple sites (principal)

== ENCOUNTER → 2021-10-17 | Outpatient (CLI) | payer MEDICARE | LOC: M WHC 13:26 | PROVIDERS: ATTEND Internal Medicine | DX: M25.552 Pain in left hip (principal); R07.81 Pleurodynia; Z53.9 Procedure and treatment not carried out, unspecified reason ==

== ENCOUNTER → 2021-10-27 | Outpatient (CLI) | payer MEDICARE | LOC: M RAD 10:27 | PROVIDERS: ATTEND Internal Medicine | DX: R05.9 Cough, unspecified (principal); I70.0 Atherosclerosis of aorta; I25.10 Atherosclerotic heart disease of native coronary artery without angina pectoris; N28.1 Cyst of kidney, acquired; R92.1 Mammographic calcification found on diagnostic imaging of breast; R91.1 Solitary pulmonary nodule; E07.9 Disorder of thyroid, unspecified; M48.14 Ankylosing hyperostosis [Forestier], thoracic region ==

== ENCOUNTER → 2021-11-24 | Outpatient (CLI) | payer MEDICARE ==
[~2021-11-24] MED LIST changes: +ASPI81CH33 PO; +KRIL300C2 PO; +OMEP40CA5 PO; +SOLI10TA PO
== END ==
LOC: M PLARAD 15:18
PROVIDERS: ATTEND Internal Medicine
DX: R91.1 Solitary pulmonary nodule (principal)
CPT/HCPCS: 78815; A9552

== ENCOUNTER → 2021-11-30 | Outpatient (CLI) | payer MEDICARE | LOC: M LABSMTC 11:18 | PROVIDERS: ATTEND Anesthesiology | DX: Z01.812 Encounter for preprocedural laboratory examination (principal); Z20.822 Contact with and (suspected) exposure to COVID-19 ==

== ENCOUNTER → 2021-12-01 | Outpatient (CLI) | payer MEDICARE | LOC: M RAD 10:09 | PROVIDERS: ATTEND Internal Medicine | DX: M89.8X0 Other specified disorders of bone, multiple sites (principal) | CPT/HCPCS: 78306; A9503 ==

== ENCOUNTER 2021-12-04 08:19 | Day surgery (SDC) | payer MEDICARE ==
[~2021-12-04] VITALS: Ht 165.1 cm; Wt 57.5 kg
[~2021-12-04 08:19] MED LIST changes: +NS 1,000 ML IV ONE
[2021-12-04] MEDS ORDERED: propofoL 200 MG/20 ML VIAL As Ordered ONE ×2 (09:33→09:51)
[2021-12-04] MEDS ORDERED: LIDOCAINE 2% 100MG/5ML SDV (FOR ANES.) As Ordered ONE (09:33)
[2021-12-04 10:35] VITALS: BP 151/69
== END 2021-12-04 10:41 | disposition home or self-care (01) ==
LOC: M OPP 08:19
PROVIDERS: ATTEND Internal Medicine Gastroenterology
DX: K64.8 Other hemorrhoids (principal); K57.30 Diverticulosis of large intestine without perforation or abscess without bleeding; Z79.1 Long term (current) use of non-steroidal anti-inflammatories (NSAID); Z79.02 Long term (current) use of antithrombotics/antiplatelets; Z79.82 Long term (current) use of aspirin; Z79.899 Other long term (current) drug therapy; Z88.0 Allergy status to penicillin; Z88.1 Allergy status to other antibiotic agents; Z88.2 Allergy status to sulfonamides; Z88.8 Allergy status to other drugs, medicaments and biological substances; Z91.013 Allergy to seafood; Z91.040 Latex allergy status; Z91.048 Other nonmedicinal substance allergy status; Z80.1 Family history of malignant neoplasm of trachea, bronchus and lung; Z80.52 Family history of malignant neoplasm of bladder; Z86.718 Personal history of other venous thrombosis and embolism; Z86.19 Personal history of other infectious and parasitic diseases; Z87.448 Personal history of other diseases of urinary system; I10 Essential (primary) hypertension; E78.5 Hyperlipidemia, unspecified

== ENCOUNTER → 2021-12-11 | Outpatient (CLI) | payer MEDICARE ==
[~2021-12-11] MED LIST changes: -NS 1,000 ML IV ONE
== END ==
LOC: M RAD 12:24
PROVIDERS: ATTEND Internal Medicine
DX: M47.816 Spondylosis without myelopathy or radiculopathy, lumbar region (principal)

== ENCOUNTER → 2022-06-08 | Outpatient (REF) | payer MEDICARE ==
[~2022-06-08] MED LIST changes: +DIPH-435 PO; -DIPH25CA32 PO; -PAXI20TA29 PO; +PAXI20TA30 PO
[2022-06-08 20:54] LABS: APPEARANCE, URINE MANUAL CLOUDY (CLEAR); COLOR, URINE MANUAL RED (YELLOW)
[2022-06-08 21:01] LABS: BILIRUBIN, URINE MANUAL OBSCURED (NEGATIVE); BLOOD URINE MANUAL OBSCURED (NEGATIVE); GLUCOSE, URINE (UA) MANUAL OBSCURED mg/dL (NEGATIVE); KETONE, URINE MANUAL OBSCURED mg/dL (NEGATIVE); LEUKOCYTE ESTERASE, URINE MAN OBSCURED (NEGATIVE); NITRITE, URINE MANUAL OBSCURED (NEGATIVE); PH,URINE MAN OBSCURED UNITS (5.0 - 7.0); PROTEIN, URINE MANUAL OBSCURED mg/dL (NEGATIVE); SPECIFIC GRAVITY,URINE MANUAL 1.014 (1.002-1.035); UROBILINOGEN, URINE MANUAL OBSCURED mg/dl (NORMAL)
[2022-06-08 21:12] LABS: RBC, URINE TNTC /hpf (0-3); WBC, URINE 15-20 /hpf (0-3)
[2022-06-08 21:13] LABS: BACTERIA, URINE LARGE AMOUNT; SQUAMOUS EPITHELIAL CELL URINE SMALL AMOUNT /hpf (SMALL AMT)
[2022-06-08 21:14] LABS: HYALINE CAST, URINE NONE SEEN /lpf (0-1)
== END ==
LOC: M LAB REF 16:47
PROVIDERS: ATTEND Physician Assistant Medical
DX: N39.0 Urinary tract infection, site not specified (principal)

== ENCOUNTER → 2022-06-11 | Outpatient (CLI) | payer MEDICARE ==
[2022-06-11 13:30] LABS: APPEARANCE, URINE CLEAR (CLEAR); BACTERIA, URINE AUTO NEGATIVE (NEGATIVE); BILIRUBIN, URINE AUTO NEGATIVE (NEGATIVE); BLOOD, URINE BLOOD 3+ (NEGATIVE); COLOR, URINE AMBER (YELLOW); GLUCOSE, URINE (UA) AUTO NEGATIVE (NEGATIVE); KETONE, URINE AUTO NEGATIVE (NEGATIVE); LEUKOCYTE ESTERASE, URINE AUTO NEGATIVE (NEGATIVE); NITRITE, URINE AUTO POSITIVE (NEGATIVE); PROTEIN, URINE AUTO 1+ mg/dL (NEGATIVE); RBC, URINE AUTO 44 /HPF (0-3); SPECIFIC GRAVITY URINE AUTO 1.008 (1.002-1.035); SQUAMOUS EPITHELIAL CELL UR AU 1 /HPF (0-6); WBC, URINE AUTO 1 /HPF (0-3)
== END ==
LOC: M RAD 12:02
PROVIDERS: ATTEND Internal Medicine
DX: R31.9 Hematuria, unspecified (principal); R10.2 Pelvic and perineal pain; N28.1 Cyst of kidney, acquired; K57.30 Diverticulosis of large intestine without perforation or abscess without bleeding; R93.89 Abnormal findings on diagnostic imaging of other specified body structures

== ENCOUNTER → 2022-06-25 | Outpatient (REF) | payer MEDICARE | LOC: M LAB REF 16:23 | PROVIDERS: ATTEND Internal Medicine | DX: R31.9 Hematuria, unspecified (principal) ==

== ENCOUNTER → 2022-07-06 | Outpatient (CLI) | payer MEDICARE ==
[2022-07-06 12:49] LABS: BASO % 0.5 % (0.0-1.0); EOS # 0.1 10^3/uL (0.0-0.5); EOS % 1.7 % (0.0-3.0); HEMATOCRIT 36.4 % (36.0-47.0); HEMOGLOBIN 11.9 g/dl (12.0-15.5); LYMPH # 1.9 10^3/uL (1.5-5.0); LYMPH % 24.1 % (24.0-44.0); MEAN CORPUSCULAR HEMOGLOBIN 30.7 pg (27.0-33.0); MEAN CORPUSCULAR HGB CONC 32.7 g/dl (32.0-36.5); MEAN CORPUSCULAR VOLUME 93.8 fl (80.0-96.0); MONO # 0.5 10^3/uL (0.0-0.8); MONO % 6.8 % (2.0-8.0); NEUTROPHILS # 5.2 10^3/uL (1.5-8.5); NEUTROPHILS % 66.6 % (36.0-66.0); PLATELET COUNT, AUTOMATED 300 10^3/uL (150-450); RED BLOOD COUNT 3.88 10^6/uL (4.00-5.40); WHITE BLOOD COUNT 7.8 10^3/uL (4.0-10.0)
[2022-07-06 13:04] LABS: INR 0.91; PROTHROMBIN TIME 12.5 SECONDS (12.5-14.5)
[2022-07-06 13:12] LABS: ALBUMIN 3.7 G/DL (3.2-5.2); ALKALINE PHOSPHATASE 82 U/L (46-116); ALT/SGPT 10 U/L (7.0-40); AST/SGOT < 8 U/L (<34); BILIRUBIN,TOTAL 0.5 MG/DL (0.3-1.2); BLOOD UREA NITROGEN 13 MG/DL (9-23); CARBON DIOXIDE LEVEL 28 MMOL/L (20-31); CHLORIDE LEVEL 106 MMOL/L (98-107); CREATININE FOR GFR 0.83 MG/DL (0.55-1.30); GLOMERULAR FILTRATION RATE > 60.0 (>32); GLUCOSE, FASTING 108 MG/DL (74-106); SODIUM LEVEL 137 MMOL/L (136-145); TOTAL PROTEIN 6.2 G/DL (5.7-8.2)
[2022-07-06 13:55] LABS: ERYTHROCYTE SEDIMENTATION RATE 5 mm/hr (0-30)
== END ==
LOC: M RAD 11:47
PROVIDERS: ATTEND Orthopaedic Surgery
DX: Z01.818 Encounter for other preprocedural examination (principal); Z98.1 Arthrodesis status; M48.14 Ankylosing hyperostosis [Forestier], thoracic region

== ENCOUNTER → 2022-07-13 | Outpatient (REF) | payer MEDICARE ==
[2022-07-13 15:46] LABS: APPEARANCE, URINE CLEAR (CLEAR); BACTERIA, URINE AUTO NEGATIVE (NEGATIVE); BILIRUBIN, URINE AUTO NEGATIVE (NEGATIVE); BLOOD, URINE BLOOD NEGATIVE (NEGATIVE); COLOR, URINE YELLOW (YELLOW); GLUCOSE, URINE (UA) AUTO NEGATIVE (NEGATIVE); KETONE, URINE AUTO NEGATIVE (NEGATIVE); LEUKOCYTE ESTERASE, URINE AUTO NEGATIVE (NEGATIVE); NITRITE, URINE AUTO NEGATIVE (NEGATIVE); PROTEIN, URINE AUTO NEGATIVE (NEGATIVE); RBC, URINE AUTO 0 /HPF (0-3); SPECIFIC GRAVITY URINE AUTO 1.009 (1.002-1.035); SQUAMOUS EPITHELIAL CELL UR AU 3 /HPF (0-6); UROBILINOGEN, URINE AUTO 0.2 mg/dL (0.0-2.0); WBC, URINE AUTO 0 /HPF (0-3)
== END ==
LOC: M LAB REF 14:23
PROVIDERS: ATTEND Internal Medicine
DX: Z01.818 Encounter for other preprocedural examination (principal); G71.09 Other specified muscular dystrophies; Z79.899 Other long term (current) drug therapy

== ENCOUNTER → 2023-01-11 | Outpatient (CLI) | payer MEDICARE ==
[~2023-01-11] MED LIST changes: +DICY-61 PO; -DICY10CA13 PO; +EZET10TA58 PO; -ZETI10TA16 PO
== END ==
LOC: M RAD 09:28
PROVIDERS: ATTEND Internal Medicine
DX: Z86.79 Personal history of other diseases of the circulatory system (principal)

== ENCOUNTER → 2023-01-25 | Outpatient (CLI) | payer MEDICARE ==
[2023-01-25 14:29] LABS: PLATELET COUNT, AUTOMATED 342 10^3/uL (150-450)
[2023-01-25 14:32] LABS: INR 0.95; PARTIAL THROMBOPLASTIN TIME 25.3 SECONDS (24.8-34.2); PROTHROMBIN TIME 12.4 SECONDS (12.5-14.5)
== END ==
LOC: M LAB 13:34
PROVIDERS: ATTEND Physician Assistant Surgical
DX: Z01.818 Encounter for other preprocedural examination (principal)

== ENCOUNTER → 2023-02-15 | Outpatient (REF) | payer MEDICARE | LOC: M LAB REF 16:12 | PROVIDERS: ATTEND Internal Medicine | DX: N39.0 Urinary tract infection, site not specified (principal) ==

== ENCOUNTER → 2023-05-19 | Outpatient (CLI) | payer MEDICARE ==
[2023-05-19 16:20] LABS: PERCENT SATURATION 33.6 % (13.2-45.0)
[2023-05-19 16:22] LABS: FERRITIN 36.9 NG/ML (7.3-270.7)
== END ==
LOC: EEVIPCON 14:37 → M RAD 14:37
PROVIDERS: ATTEND Internal Medicine
DX: R31.9 Hematuria, unspecified (principal); D50.9 Iron deficiency anemia, unspecified; N28.1 Cyst of kidney, acquired; R14.0 Abdominal distension (gaseous); R93.3 Abnormal findings on diagnostic imaging of other parts of digestive tract

== ENCOUNTER → 2023-05-26 | Outpatient (REF) | payer MEDICARE | LOC: M LAB REF 12:15 | PROVIDERS: ATTEND Internal Medicine | DX: R31.9 Hematuria, unspecified (principal); R82.998 Other abnormal findings in urine ==

== ENCOUNTER → 2023-06-02 | Outpatient (REF) | payer MEDICARE | LOC: M LAB REF 12:21 | PROVIDERS: ATTEND Internal Medicine | DX: R31.9 Hematuria, unspecified (principal) ==

== ENCOUNTER → 2023-06-23 | Outpatient (CLI) | payer MEDICARE ==
[2023-06-23 15:38] LABS: APPEARANCE, URINE HAZY (CLEAR); BACTERIA, URINE AUTO NEGATIVE (NEGATIVE); BILIRUBIN, URINE AUTO NEGATIVE (NEGATIVE); BLOOD, URINE BLOOD 3+ (NEGATIVE); COLOR, URINE YELLOW (YELLOW); GLUCOSE, URINE (UA) AUTO NEGATIVE (NEGATIVE); KETONE, URINE AUTO NEGATIVE (NEGATIVE); LEUKOCYTE ESTERASE, URINE AUTO 3+ (NEGATIVE); MUCUS, URINE SMALL (NEGATIVE); NITRITE, URINE AUTO NEGATIVE (NEGATIVE); PROTEIN, URINE AUTO NEGATIVE (NEGATIVE); RBC, URINE AUTO 8 /HPF (0-3); SPECIFIC GRAVITY URINE AUTO 1.004 (1.002-1.035); SQUAMOUS EPITHELIAL CELL UR AU 0 /HPF (0-6); UROBILINOGEN, URINE AUTO 0.2 mg/dL (0.0-2.0); WBC, URINE AUTO 176 /HPF (0-3)
== END ==
LOC: M LAB 15:00
PROVIDERS: ATTEND Nurse Practitioner Adult Health
DX: Z87.440 Personal history of urinary (tract) infections (principal)

== ENCOUNTER → 2023-07-31 | Outpatient (REF) | payer MEDICARE ==
[~2023-07-31] MED LIST changes: -ROSU10TA6 PO; +ROSU10TA61 PO
== END ==
LOC: M LAB REF 17:17
PROVIDERS: ATTEND Physician Assistant
DX: N30.11 Interstitial cystitis (chronic) with hematuria (principal)

== ENCOUNTER → 2023-09-02 | Outpatient (REF) | payer MEDICARE ==
[2023-09-02 12:51] LABS: RSV AMPLIFICATION NEGATIVE (NEGATIVE)
== END ==
LOC: M LAB REF 11:22
PROVIDERS: ATTEND Internal Medicine
DX: R05.9 Cough, unspecified (principal)

== ENCOUNTER → 2023-09-13 | Outpatient (REF) | payer MEDICARE ==
[2023-09-13 19:06] LABS: PERCENT SATURATION 27.4 % (13.2-45.0)
[2023-09-13 19:08] LABS: FERRITIN 43.3 NG/ML (7.3-270.7)
== END ==
LOC: M LAB REF 17:04
PROVIDERS: ATTEND Internal Medicine
DX: D50.9 Iron deficiency anemia, unspecified (principal)

== ENCOUNTER → 2023-10-22 | Outpatient (CLI) | payer MEDICARE ==
[2023-10-22 12:37] LABS: APPEARANCE, URINE MANUAL HAZY (CLEAR); COLOR, URINE MANUAL ORANGE (YELLOW); GLUCOSE, URINE (UA) MANUAL NEGATIVE (NEGATIVE); KETONE, URINE MANUAL NEGATIVE (NEGATIVE); PROTEIN, URINE MANUAL OBSCURED mg/dL (NEGATIVE); UROBILINOGEN, URINE MANUAL OBSCURED mg/dl (NORMAL)
[2023-10-22 12:38] LABS: BILIRUBIN, URINE MANUAL OBSCURED (NEGATIVE); LEUKOCYTE ESTERASE, URINE MAN POSITIVE (NEGATIVE); NITRITE, URINE MANUAL OBSCURED (NEGATIVE)
[2023-10-22 12:39] LABS: BLOOD URINE MANUAL POSITIVE (NEGATIVE)
[2023-10-22 12:54] LABS: WBC, URINE TNTC /hpf (0-3)
[2023-10-22 12:55] LABS: AMORPHOUS SEDIMENT, URINE MOD AMOUNT (NEGATIVE); BACTERIA, URINE SMALL AMOUNT; HYALINE CAST, URINE NONE SEEN /lpf (0-1); MUCUS, URINE SMALL AMOUNT (NEGATIVE); RBC, URINE 20-30 /hpf (0-3); SQUAMOUS EPITHELIAL CELL URINE LARGE AMOUNT /hpf (SMALL AMT)
== END ==
LOC: M LAB 10:55
PROVIDERS: ATTEND Physician Assistant
DX: R10.30 Lower abdominal pain, unspecified (principal)

== ENCOUNTER → 2024-04-14 | Outpatient (REF) | payer MEDICARE | LOC: M LAB REF 12:30 | PROVIDERS: ATTEND Nurse Practitioner Family | DX: R31.9 Hematuria, unspecified (principal) ==

== ENCOUNTER → 2024-09-20 | Outpatient (REF) | payer MEDICARE ==
[2024-09-20 18:41] LABS: IRON (FE) 84.0 UG/DL (50-170); PERCENT SATURATION 28.3 % (13.2-45.0)
== END ==
LOC: M LAB REF 17:53
PROVIDERS: ATTEND Internal Medicine
DX: D50.9 Iron deficiency anemia, unspecified (principal)

== ENCOUNTER → 2024-12-13 | Outpatient (CLI) | payer MEDICARE ==
[~2024-12-13] MED LIST changes: -EZET10TA21; +EZET10TA57
[2024-12-13 19:23] LABS: IRON (FE) 74.0 UG/DL (50-170); PERCENT SATURATION 23.5 % (13.2-45.0)
== END ==
LOC: M WUC 14:37
PROVIDERS: ATTEND Internal Medicine
DX: Z01.818 Encounter for other preprocedural examination (principal); M54.50 Low back pain, unspecified; R20.0 Anesthesia of skin; M47.816 Spondylosis without myelopathy or radiculopathy, lumbar region; M48.56XA Collapsed vertebra, not elsewhere classified, lumbar region, initial encounter for fracture

== ENCOUNTER → 2024-12-19 | Outpatient (CLI) | payer MEDICARE ==
[2024-12-19 14:03] LABS: PLATELET COUNT, AUTOMATED 294 10^3/uL (150-450)
[2024-12-19 14:10] LABS: ERYTHROCYTE SEDIMENTATION RATE 5 mm/hr (0-30)
[2024-12-19 14:24] LABS: INR 0.88
== END ==
LOC: M RAD 13:01
PROVIDERS: ATTEND Orthopaedic Surgery
DX: Z01.812 Encounter for preprocedural laboratory examination (principal); M17.11 Unilateral primary osteoarthritis, right knee; I44.7 Left bundle-branch block, unspecified

== ENCOUNTER → 2024-12-22 | Outpatient (CLI) | payer MEDICARE ==
[2024-12-22 15:37] LABS: CALCIUM LEVEL 9.4 MG/DL (8.3-10.6); CARBON DIOXIDE LEVEL 29.0 MMOL/L (20-31); CHLORIDE LEVEL 103.0 MMOL/L (98-107); CREATININE FOR GFR 0.92 MG/DL (0.55-1.30); GLOMERULAR FILTRATION RATE 59.9 (>32); POTASSIUM SERUM 4.0 MMOL/L (3.5-5.1); SODIUM LEVEL 141.0 MMOL/L (136-145)
== END ==
LOC: M LAB 14:02
PROVIDERS: ATTEND Orthopaedic Surgery
DX: Z01.812 Encounter for preprocedural laboratory examination (principal); M17.12 Unilateral primary osteoarthritis, left knee